=== PATIENT | male | born 1950 | race Caucasian/White ===

== ENCOUNTER 2016-11-13 12:16 | Emergency (ER) | payer OTHER ==
--- NOTE | 2016-11-13 12:27 | ED.PDOC ---
General ED Provider: Dr. SAMANTHA WALKER JR Chief Complaint: Finger Pain/Injury Stated Complaint: was traveling hoome from [facility] on Monday and was sleepiing in car. Awoke to find left thumb hurting, discolored. Appearance worsening on Monday and he "drained it" on Monday[End]2 days 97.8 69 16 92% 132/82 Presents to the ED with c/o left thumb pain/injury. Unknown cause[End]LEFT RADIAL SIDE OF THUMB WITH 5X10MM FLUCTUANT NONTENDER MASS SURROUNDING ECCHYMOSES IS ON XARELTO-STATES IS TRENDER HAS DRAINED IT TWICE BY STERILIZING A NEEDLE AND POKING A HOME Time Seen by Physician: 12:27 Mode of Arrival: Walk-In Information Source: Patient Exam Limitations: No limitations Primary Care Provider: JOVANA PARDO Nursing and Triage Documentation Reviewed and Agree: No Review of Systems - Review Of Systems Constitutional: Reports: No symptoms Eyes: Reports: No symptoms Ears, Nose, Mouth, Throat: Reports: No symptoms Respiratory: Reports: No symptoms Cardiac: Reports: No symptoms GI: Reports: No symptoms : Reports: No symptoms Musculoskeletal: Reports: No symptoms Skin: Reports: Lesions Neurological: Reports: No symptoms Endocrine: Reports: No symptoms Hematologic/Lymphatic: Reports: No symptoms All Other Systems: Other Past Medical History - Past Medical History Endocrine: Reports: DM 2, Hypothyroid, Dyslipidemia Cardiovascular: Reports: Hypertension, A-Fib Respiratory: Reports: None Hematological: Reports: None Gastrointestinal: Reports: None Genitourinary: Reports: Kidney stones Neuro/Psych: Reports: None Musculoskeletal: Reports: None Cancer: Reports: None - Surgical History General Surgical History: Reports: Orthopedic (right knee surgery repair 2002 ) - Family History Family History: Reports: Unknown - Social History Smoking Status: Never smoker Hx Substance Use: No Alcohol Screening: None - Immunizations Tetanus Shot up to Date: No Physical Exam - Physical Exam Appearance: Well-appearing, Obese Pain Distress: Mild Neck: Supple Respiratory: Airway patent Skin: Warm, Dry, Normal color Procedures - Incision and Drainage Site: left thumb Instrument Used: Needle (2cc bloody fluid removed thin overlying skin needs debridement), Other I & D Procedure: Yes: Hibiclens Prep Lidocaine Used: Yes Type of Drainage: Present: Blood, Seroma Irrigated: No (vesicle debrided along edge with scissors slight bleeding bandaged ) Critical Care Note - Critical Care Note Total Time (mins): 0 Course - Course Orders, Labs, Meds: Orders Category Date Time Status CULTURE WOUND [WOUND CULTURE] Stat LAB 11/13/16 12:55 Received Lidocaine HCl/Pf [Lidocaine 1 % Amp 5 ml (Sutures)] MEDS 11/13/16 12:53 Discontinued 5 ml SUBCUT ONCE STA Medications Discontinued Medications Generic Name Dose Route Start Last Admin Trade Name Ankush PRN Reason Stop Dose Admin Lidocaine HCl 5 ml 11/13/16 12:53 11/13/16 13:33 Lidocaine 1 % Amp 5 Ml (Sutures) SUBCUT 11/13/16 12:54 5 ml ONCE STA Administration Vital Signs: Temp Pulse Resp BP Pulse Ox 11/13/16 12:17 97.8 F 69 16 132/82 92 L Departure - Departure Time of Disposition: 13:50 Disposition: HOME SELF-CARE Discharge Problem: Hematoma and contusion Instructions: Contusion in Adults (ED) Condition: Good Pt referred to PMD for follow-up: Yes Additional Instructions: change bandage twice a day apply antibiotic ointment to keep moist return if red swollen increasing tenderness recheck PMD Please follow-up with Dr. Pardo in 1-5 days. Prescriptions: Bacitracin 1 applic TP 2-4XD #1 pkg Allergies/Adverse Reactions: Allergies No Known Allergies Allergy (Unverified 11/13/16 12:27) Home Medications: Ambulatory Orders Aspirin [Aspirin Chewable] 81 mg PO DAILY 10/30/13 Doxazosin Mesylate [Cardura] 8 mg PO BID 10/30/13 Furosemide [Lasix Tab] 40 mg PO DAILY 10/30/13 Latanoprost [Xalatan] 1 drop OP DAILY 10/30/13 Losartan Potassium [Cozaar] 100 mg PO DAILY 10/30/13 Metoprolol Tartrate [Lopressor] 100 mg PO BID 10/30/13 Potassium Chloride [K-Tab] 20 meq PO DAILY 10/30/13 Simvastatin [Zocor] 40 mg PO DAILY 10/30/13 Diltiazem HCl [Cardizem] 60 mg PO Q12HR #60 tablet 11/01/13 Clonidine HCl 0.2 mg PO BID #60 tablet 11/28/13 Metformin HCl 1,000 mg PO QPM #30 tablet 11/28/13 Mupirocin [Bactroban] 1 applic TP TID #1 applic 11/28/13 Propylthiouracil 50 mg PO Q8H #90 tablet 11/28/13 Bacitracin 1 applic TP 2-4XD #1 pkg 11/13/16 Rivaroxaban [Xarelto] 15 mg PO QPM 11/13/16
[2016-11-13 12:43] VITALS: BP 132/82; TEMP 97.8; BMI 40.9
[2016-11-13] MEDS ORDERED: LIDOCAINE 1 % AMP 5 ML (SUTURES) SUBCUT STA (12:53)
== END 2016-11-13 13:59 | disposition home or self-care (01) ==
LOC: ED 12:16
DX: S60.012A Contusion of left thumb without damage to nail, initial encounter (principal)
CPT/HCPCS: 87070; 87186; 96372; 99282

== ENCOUNTER 2017-05-25 09:05 | Outpatient (CLI) | END 2017-05-25 09:06 | disposition home or self-care (01) | LOC: LAB 09:05 | PROVIDERS: ATTEND Internal Medicine Endocrinology, Diabetes & Metabolism | DX: E05.90 Thyrotoxicosis, unspecified without thyrotoxic crisis or storm (principal) | CPT/HCPCS: 36415; 84439; 84443; 84480 ==

== ENCOUNTER 2023-08-19 09:30 | Inpatient (IN) ==
--- NOTE | 2023-08-19 10:00 | ED.PDOC ---
General ED Provider: Dr. AR NEAL DO Chief Complaint: Weakness Stated Complaint: 72-year-old male presents to the ER with his complaining of generalized weakness and nausea. This been going on for 4 days. They have not made any effort to contact her primary care physician. He denies fever over the last 48 to 72 hours. Denies headache, chest pain, shortness of breath or abdominal pain. Denies vomiting, diarrhea, constipation, melena or hematochezia. He does have a history of atrial fibrillation and reports compliance with his blood thinner. Also has a history of chronic kidney disease and diabetes. He is currently being treated for diabetic foot ulcers bilaterally. Denies fever or sick contacts. States that he has not had any desire to eat or drink. Time Seen by Provider: 08/19/23 09:33 Mode of Arrival: Walk-In Information Source: Patient Primary Care Provider: JOVANA PARDO MD Nursing and Triage Documentation Reviewed and Agree: Yes Does Patient Take Opioids?: No What is Opioid Naive?: *Opioid Naive implies the patient is not already taking opioids or not chronically receiving opioids on a daily basis. *PRN dosing is not "usually" associated with tolerance. *Patients are at higher risk of over-sedation and aspiration. Is Patient Opioid Tolerant?: No What is Opioid Tolerant?: *Opioid Tolerance implies less than the expected response to an opioid. *Acquired tolerance is defined by the patient taking 60mg of oral morphine daily (or equianalgesic dose of another opioid) for 1 week or more. *Often associated with chronic pain. *May take more than usual dose to achieve desired pain control. Review of Systems Review Of Systems Constitutional: Reports Malaise, Weakness and Loss of appetite; Denies Chills, Fever or Sweats Ears, Nose, Mouth, Throat: Reports No symptoms Respiratory: Reports No symptoms Cardiac: Reports No symptoms GI: Reports Nausea; Denies Vomiting : Reports No symptoms Musculoskeletal: Reports No symptoms Skin: Reports Other (Chronic diabetic foot ulcers) Neurological: Reports No symptoms Hematologic/Lymphatic: Reports No symptoms PFSH Family History FATHER CHF (congestive heart failure) Mother COPD (chronic obstructive pulmonary disease) Social History Smoking and tobacco status: Never smoker Second hand smoke exposure: Yes Alcohol intake: never Substance use type: does not use Special yury needs: No Agree to transfusion: Yes Adopted: No Caregiver/support person: No Foster care: No Household members: spouse Housing: house Marital status: M Lives independently: Yes Daycare: no daycare Number of children: 0 service: No shelter: No Current occupational status: retired History of recent travel: No Do you think of yourself as: straight/heterosexual Current gender identity: male Seatbelt use: always Drives intoxicated or rides with intoxicated solid waste truck driver: No Water heater temperature set < 120 degrees: Yes Working smoke detector in home: Yes Fire extinguisher in home: Yes Carbon monoxide detector in home: No Physical Exam Physical Exam Appearance: Reports Well-appearing, No pain distress and Well-nourished Eyes: Reports RYLEE, EOMI and Conjunctiva clear ENT: Reports Nose normal and Oropharynx normal Neck: Supple Respiratory: Reports Airway patent and Breath sounds clear Cardiovascular: Reports Irregular rhythm and Tachycardia GI/: Reports Soft and Nontender Musculoskeletal: Reports Normal strength, ROM intact and Other (Surgical boot on bilateral feet which are dressed and bandaged secondary to chronic diabetic foot ulcers) Skin: Reports Warm, Dry and Pale Neurological: Reports Sensation intact and Motor intact Psychiatric: Reports Affect appropriate and Mood appropriate Interpretation EKG Interpretation EKG Interpretation By: ED Physician Time of EKG #1: 09:56 Rate: Tachy Rhythm: Other (afib w/rvr) Ectopy: None [place]: Left ST Segment: Normal Interpretation: afib w/rvr, non ischemic ekg Course Course 08/19/23 13:35 08/19/23 13:35 Orders, Labs, Meds: Lab Review 08/19/23 08/19/23 08/19/23 09:45 09:50 10:17 WBC 16.09 H RBC 3.45 L Hgb 10.2 L Hct 34.1 L MCV 98.8 H MCH 29.6 MCHC 29.9 L RDW Coeff of Ebenezer 18.6 H Plt Count 166 Immature Gran % (Auto) Neut % (Auto) Lymph % (Auto) [place] % (Auto) Eos % (Auto) Baso % (Auto) Neut # (Auto) Lymph # (Auto) [place] # (Auto) Eos # (Auto) Baso # (Auto) Immature Gran # (Auto) Neutrophils % (Manual) 85.0 H Lymphocytes % (Manual) 10.0 Monocytes % (Manual) 4.0 Eosinophils % (Manual) 1.0 Anisocytosis Not present PT 11.4 H INR 1.10 APTT 25.6 Sodium 133.4 L Potassium 3.79 Chloride 107.5 H Carbon Dioxide 13.2 L Anion Gap 16.49 BUN 98.1 H* Creatinine 3.84 H* Estimated GFR (MDRD) 16.00 BUN/Creatinine Ratio 25.54 Glucose 229.5 H Lactic Acid Calcium 9.35 Total Bilirubin 0.50 AST 26.8 ALT 23.9 Alkaline Phosphatase 87.4 Total Protein 5.83 L Albumin 3.02 L Globulin 2.81 Albumin/Globulin Ratio 1.07 Procalcitonin SARS CoV-2 RNA Rapid LUKASZ Negative 08/19/23 08/19/23 10:30 13:35 WBC 15.18 H RBC 3.08 L Hgb 9.2 L Hct 30.0 L MCV 97.4 H MCH 29.9 MCHC 30.7 L RDW Coeff of [place]ene[place] 18.6 H Plt Count 137 L Immature Gran % (Auto) 0.6 Neut % (Auto) 91.9 H Lymph % (Auto) 3.4 L [place] % (Auto) 4.0 Eos % (Auto) 0.0 Baso % (Auto) 0.1 Neut # (Auto) 14.0 H Lymph # (Auto) 0.5 L [place] # (Auto) 0.6 Eos # (Auto) 0.0 Baso # (Auto) 0.0 Immature Gran # (Auto) 0.1 Neutrophils % (Manual) Lymphocytes % (Manual) Monocytes % (Manual) Eosinophils % (Manual) Anisocytosis PT INR APTT Sodium 135.7 Potassium 3.63 Chloride 109.3 H Carbon Dioxide 15.8 L Anion Gap 14.23 BUN 92.2 H* Creatinine 3.82 H* Estimated GFR (MDRD) 16.00 BUN/Creatinine Ratio 24.13 Glucose 212.4 H Lactic Acid 1.55 Calcium 8.87 Total Bilirubin AST ALT Alkaline Phosphatase Total Protein Albumin Globulin Albumin/Globulin Ratio Procalcitonin 0.11 H SARS CoV-2 RNA Rapid LUKASZ Orders Category Date Time Status EKG-(ED ONLY) Stat CARDIO 08/19/23 09:33 Completed ED MUFFLER MECHANIC APPLIED .ONCE EMERGENCY 08/19/23 10:27 Active ED VITAL SIGNS Q1HR EMERGENCY 08/19/23 10:27 Active BLOOD CULTURE (ED ONLY) Stat LAB 08/19/23 09:45 Received BMP [BASIC METABOLIC PANEL] Stat LAB 08/19/23 13:35 Completed CBC W/ AUTO DIFF Stat LAB 08/19/23 09:50 Completed CBC W/ AUTO DIFF Stat LAB 08/19/23 13:35 Completed CMP [COMPREHENSIVE METABOLIC PANEL] Stat LAB 08/19/23 09:50 Completed COVID [SARS COV-2 RNA RAPID LUKASZ] Stat LAB 08/19/23 10:17 Completed LACTIC ACID Stat LAB 08/19/23 10:30 Completed MANUAL DIFFERENTIAL Stat LAB 08/19/23 09:50 Completed PARTIAL THROMBOPLASTIN TIME Stat LAB 08/19/23 09:45 Completed PROCALCITONIN Stat LAB 08/19/23 10:30 Completed PT WITH INR Stat LAB 08/19/23 09:45 Completed URINALYSIS C & S IF INDICATED Stat LAB 08/19/23 09:33 Uncollected Diltiazem HCl [Cardizem Inj] Meds 08/19/23 09:55 Discontinued 15 mg IVP ONCE STA Piperacillin Sodium/Tazobactam [Zosyn 3.375 gm] 3.375 Meds 08/19/23 10:27 Discontinued gm 0.9 % Sodium Chloride [Sodium Chloride] 50 ml IV ONCE SODIUM BICARB 100 MEQ in 0.9% SODIUM CHLORIDE 1000ML @ Meds 08/19/23 15:34 Ordered 200 MLS/HR Sodium Chloride 0.9% [Sodium Chloride] 1,000 ml Sodium Bicarb 8.4% Vial [Sodium Bicarbonate 8.4%] 100 meq IV 200 mls/hr Sodium Chloride 0.9% [Sodium Chloride] 1,000 ml Meds 08/19/23 15:08 Active IV 125 mls/hr Sodium Chloride 0.9% [Sodium Chloride] 1,000 ml Meds 08/19/23 09:55 Discontinued IV BOLUS Sodium Chloride 0.9% [Sodium Chloride] 1,000 ml Meds 08/19/23 11:07 Discontinued IV BOLUS CHEST, 1V AP ONLY Stat RADS 08/19/23 09:33 Completed Medications Generic Name Dose Route Start Last Admin Trade Name Freq PRN Reason Stop Dose Admin Sodium Chloride 1,000 mls @ 125 mls/hr 08/19/23 15:08 08/19/23 15:21 Sodium Chloride IV 08/19/23 23:07 125 mls/hr .Q8H ONE Administration Discontinued Medications Generic Name Dose Route Start Last Admin Trade Name Ankush PRN Reason Stop Dose Admin Diltiazem HCl 15 mg 08/19/23 09:55 08/19/23 10:36 Diltiazem Hcl Inj 25 Mg/5 Ml Vial IVP 08/19/23 09:56 15 mg ONCE STA Administration Sodium Chloride 1,000 mls @ 1,000 mls/hr 08/19/23 09:55 08/19/23 11:38 Sodium Chloride IV 08/19/23 10:54 Infused BOLUS ONE Infusion Piperacillin Sod/Tazobactam 50 mls @ 50 mls/hr 08/19/23 10:27 08/19/23 10:38 Sod 3.375 gm/ Sodium Chloride IV 08/19/23 11:26 50 mls/hr ONCE STA Administration Sodium Chloride 1,000 mls @ 1,000 mls/hr 08/19/23 11:07 08/19/23 13:20 Sodium Chloride IV 08/19/23 12:06 Infused BOLUS ONE Infusion Vital Signs: Temp Pulse Resp BP Pulse Ox 08/19/23 10:51 103 H 20 98 08/19/23 09:36 98.4 F 68 20 173/115 H 100 Discharge Plan Discharge Patient Disposition: ADMITTED INPATIENT Discharge Problem: Acute kidney injury superimposed on chronic kidney disease, Metabolic acidosis, Acute dehydration Atrial fibrillation Qualifiers: Atrial fibrillation type: permanent Qualified Code(s): I48.21 - Permanent atrial fibrillation Diabetes Qualifiers: Diabetes mellitus type: type 2 Diabetes mellitus terminal gauger insulin use: without nursing home use Diabetes mellitus complication status: with kidney complications D iabetes mellitus complication detail: with chronic kidney disease Chronic kidney disease stage: unspecified stage Qualified Code(s): E11.22 - Type 2 diabetes mellitus with diabetic chronic kidney disease Diabetic foot ulcer Qualifiers: Diabetic foot ulcer location: heel Diabetes mellitus type: type 2 Laterality: u nspecified laterality Non-pressure ulcer stage: unspecified non-pressure ulcer stage Qualified Code(s): E11.621 - Type 2 diabetes mellitus with foot ulcer; L97.409 - Non-pressure chronic ulcer of unspecified heel and midfoot with unspecified severity Prescriptions: No Action Xarelto 15 mg tablet 15 mg PO QDAY Qty: 90 1RF Rx Instructions: must administer with evening meal metoprolol tartrate 100 mg tablet 100 mg PO BID Qty: 180 1RF diltiazem HCl 60 mg tablet 60 mg PO Q12HR Qty: 180 1RF clonidine HCl 0.2 mg tablet See Rx Instructions .ROUTE .COMPLEX Qty: 180 0RF Dose Instruction: TAKE 1 TABLET BY MOUTH TWICE DAILY Rx Instructions: TAKE 1 TABLET BY MOUTH TWICE DAILY terazosin 5 mg capsule See Rx Instructions .ROUTE .COMPLEX Qty: 180 0RF Dose Instruction: TAKE 1 CAPSULE BY MOUTH TWICE DAILY Rx Instructions: TAKE 1 CAPSULE BY MOUTH TWICE DAILY latanoprost 1 DROP drops 1 drp BOTHEYES DAILY atorvastatin [Lipitor] 40 mg tablet 20 mg PO DAILY insulin degludec [Tresiba FlexTouch U-100] 100 unit/mL (3 mL) insulin pen 12 unit subcut QDAY insulin lispro 100 unit/mL insulin pen 6 unit subcut BID furosemide [Lasix] 20 mg tablet 20 mg PO 5XW Qty: 90 1RF Rx Instructions: DO NOT TAKE MONDAY OR MONDAY zinc gluconate 100 mg tablet 100 mg PO DAILY magnesium 250 mg tablet 250 mg PO QDAY ferrous fumarate 325 mg (106 mg iron) tablet 325 mg PO QDAY calcitriol 0.5 mcg capsule 0.5 mcg PO QDAY sodium bicarbonate 650 mg tablet 650 mg PO TID allopurinol 100 mg tablet 200 mg PO QDAY Victoza 3-Antonio 0.6 mg/0.1 mL (18 mg/3 mL) pen injector 1.8 mg subcut QDAY glucosamine-chondroitin [Osteo Bi-Flex] 250-200 mg tablet 2 tab PO QPC omega 4-[id number]-yoa-fish oil [Fish Oil] 60-90-500 mg capsule 3 cap PO QDAY ascorbic acid (vitamin C) 1,000 mg tablet 1 g PO Q6H ergocalciferol (vitamin D2) [Vitamin D2] 1,250 mcg (50,000 unit) capsule 1,250 mcg PO QMONTH Did you review [place] [employer] SURVEYOR for ALL controlled substances?: Not Applicable ED Provider: AR NEAL Condition: Stable Physician Progress Note: [] 72-year-old male with multiple comorbidities presents to the ER reporting generalized weakness and nausea. He is mildly pale and color. He is tachycardic. History of atrial fibrillation. Rate not consistent with rapid ventricular response but is not excluded. Denies melena or hematochezia, however anemia not excluded given the pallor. He is otherwise afebrile nontoxic doubt systemic infection such as sepsis. Doubt acute cardiopulmonary processes to include but not limited to ACS, TN, PE, pneumothorax, dissection or tamponade. Abdomen soft nontender throughout, doubt acute intra-abdominal process. Given multiple comorbidities however metabolic/electrolyte/diabetic etiology not excluded. Chronic kidney disease also remains on the differential. Will obtain laboratory workup and begin IV fluid management. Will give a dose of diltiazem given the history of atrial fibrillation and patient reports compliance with his medications. Will review his workup for disposition planning. 1029: Although patient is afebrile, he has a white count of 16 and tachycardia call following for SIRS. Sepsis definitely possible given his presence of diabetic foot ulcers. I have expanded his workup to include the necessary labs for the sepsis workup and initiated antibiotics. I have not given the 30 cc/kg bolus due to the patient's history of chronic kidney disease and I do not want to risk fluid overload. He is otherwise hemodynamically stable and is not hypotensive 1128: Patient is asked for something to drink. Tolerating p.o. Labs consistent with acute kidney injury/dehydration. Negative lactic acid. Consider leukocytosis secondary to contracture as opposed to true sepsis or SIRS. Will give fluid bolus and recheck status of renal function and white count for final disposition 1534: Patient has not produced any urine after 2 L of IV fluids. Has been here for 5 hours. I believe this patient is very volume depleted. I also feels that his chronic kidney disease is worsening. I discussed with the hospitalist and Dr. Pardo who are okay with bringing the patient into the hospital here. I will give a single dose of IV sodium bicarb given his acidosis on his metabolic profile to try and aid in his renal function and metabolic profile and overall treatment. Will continue IV fluids otherwise. The patient will be admitted to the hospital service.
[2023-08-19 10:10] LABS: HEMATOCRIT 34.1 % (42.0-52.0); HEMOGLOBIN 10.2 g/dl (14.0-18.0); MEAN CORPUSCULAR HEMOGLOBIN 29.6 pg (27.0-31.0); MEAN CORPUSCULAR HGB CONC 29.9 (31.8-35.4); MEAN CORPUSCULAR VOLUME 98.8 fl (80.0-94.0); PLATELET COUNT 166 10^3/uL (140-440); RDW COEFFICIENT OF VARIATION 18.6 % (11.6-14.8); RED BLOOD COUNT 3.45 10^6/ul (4.70-6.10); WHITE BLOOD COUNT 16.09 K/ul (4.2-10.2)
[2023-08-19 10:25] LABS: ALANINE AMINOTRANSFERASE 23.9 U/L (0-50); ALBUMIN 3.02 g/dL (3.5-5.0); ALKALINE PHOSPHATASE 87.4 U/L (56-119); ANISOCYTOSIS NOT PRESENT (NOT PRESENT); ASPARTATE AMINO TRANSFERASE 26.8 U/L (17-59); BILIRUBIN,TOTAL 0.5 mg/dL (0.2-1.3); CALCIUM 9.35 mg/dL (8.4-10.2); CARBON DIOXIDE 13.2 mmol/L (22-30.0); CHLORIDE 107.5 mmol/L (98-107); GLUCOSE 229.5 mg/dL (74-106); POTASSIUM 3.79 mmol/L (3.5-5.1); SODIUM 133.4 mmol/L (134.5-145); TOTAL PROTEIN 5.83 g/dL (6.3-8.2)
[2023-08-19 10:34] LABS: BLOOD UREA NITROGEN 98.1 mg/dL (9-20)
[2023-08-19 10:35] LABS: CREATININE 3.84 mg/dL (0.60-1.10)
[2023-08-19] MEDS: SODIUM CHLORIDE 1,000 ML IV ONE ×3 (10:36→15:21)
[2023-08-19] MEDS: CARDIZEM INJ IVP STA (10:36)
[2023-08-19] MEDS: ZOSYN 3.375 GM 3.375 GM in SODIUM CHLORIDE 50 ML IV STA (10:38)
[2023-08-19 11:01] LABS: PARTIAL THROMBOPLASTIN TIME 25.6 SEC (23.9-40.0); PROTHROMBIN TIME 11.4 SEC (9.3-11.0)
[2023-08-19 11:11] LABS: SARS COV-2 RNA RAPID NAAT NEGATIVE (NEGATIVE)
--- NOTE | 2023-08-19 11:23 | DI ---
EXAM: SINGLE VIEW CHEST. HISTORY: Weakness COMPARISON: 02/08/2017 FINDINGS: The car mediastinal silhouette appears enlarged. Mild calcified plaques overlie the aorta. Pulmonary vascularity is within normal limits. No focal airspace opacity or pleural effusion is se en. Punctate left lower lung zone calcified granuloma is suggested. The bones are diffusely deminer alized. IMPRESSION: No acute cardiopulmonary findings. Mild cardiomegaly versus magnified heart size by technique.
[2023-08-19 13:41] LABS: BASOPHILS % (AUTO) 0.1 % (0.0-3.0); HEMOGLOBIN 9.2 g/dl (14.0-18.0); IMMATURE GRANULOCYTE # (AUTO) 0.1 (0.0-1.0); IMMATURE GRANULOCYTE % (AUTO) 0.6 % (0.0-5.0); LYMPHOCYTES # (AUTO) 0.5 K/uL (0.60-3.4); LYMPHOCYTES % (AUTO) 3.4 (10.0-50.0); MEAN CORPUSCULAR HEMOGLOBIN 29.9 pg (27.0-31.0); MEAN CORPUSCULAR HGB CONC 30.7 (31.8-35.4); MEAN CORPUSCULAR VOLUME 97.4 fl (80.0-94.0); MONOCYTES # (AUTO) 0.6 K/uL (0.4-2.0); NEUTROPHILS % (AUTO) 91.9 % (42.2-75.2); PLATELET COUNT 137 10^3/uL (140-440); RDW COEFFICIENT OF VARIATION 18.6 % (11.6-14.8); RED BLOOD COUNT 3.08 10^6/ul (4.70-6.10); WHITE BLOOD COUNT 15.18 K/ul (4.2-10.2)
[2023-08-19 13:54] LABS: CALCIUM 8.87 mg/dL (8.4-10.2); CARBON DIOXIDE 15.8 mmol/L (22-30.0); CHLORIDE 109.3 mmol/L (98-107); GLUCOSE 212.4 mg/dL (74-106); SODIUM 135.7 mmol/L (134.5-145)
[2023-08-19 14:06] LABS: BLOOD UREA NITROGEN 92.2 mg/dL (9-20); POTASSIUM 3.63 mmol/L (3.5-5.1)
[2023-08-19 14:07] LABS: CREATININE 3.82 mg/dL (0.60-1.10)
[2023-08-19] MEDS ORDERED: TYLENOL PO PRN (15:36)
[2023-08-19] MEDS ORDERED: SODIUM CHLORIDE 1,000 ML IV SCH (16:00)
[2023-08-19] MEDS: SODIUM CHLORIDE IV ONE (16:11)
[2023-08-19] MEDS: SODIUM BICARBONATE IV ONE (16:11)
[2023-08-19] MEDS: SODIUM BICARBONATE 8.4% ONE ×2 (17:22→17:38)
[2023-08-19] MEDS: SODIUM BICARBONATE IV SCH (17:37)
[2023-08-19] MEDS: LACTATED RINGERS IV SCH (17:37)
[2023-08-19 18:08] VITALS: BMI 29.0
[2023-08-19 18:09] LABS: BILIRUBIN,URINE Negative (NEGATIVE); CLARITY,URINE Clear (CLEAR); COLOR,URINE Yellow (YELLOW); GLUCOSE, URINE (UA) Trace (NEGATIVE); KETONES,URINE Negative (NEGATIVE); LEUKOCYTE ESTERASE ,URINE Negative (NEGATIVE); NITRITE,URINE Negative (NEGATIVE); PROTEIN,URINE 2+ (NEGATIVE); URINE, BLOOD Trace-intact (NEGATIVE); UROBILINOGEN,URINE 0.2 (0.2)
[2023-08-19] MEDS ORDERED: NON-FORMULARY MEDICATION (Insulin Degludec [Tresiba Flextouch U-100] 100 unit/mL (3 mL) in SUBCUT SCH (18:30)
[2023-08-19] MEDS: LOPRESSOR PO ONE (19:29)
[2023-08-19] MEDS: CATAPRES PO SCH (21:08)
[2023-08-19] MEDS: HYTRIN PO SCH (21:08)
[2023-08-19] MEDS: SODIUM BICARBONATE PO SCH (21:08)
[2023-08-19] MEDS: CARDIZEM PO SCH (21:08)
[2023-08-19] MEDS: XARELTO PO SCH (21:09)
[2023-08-20] MEDS: SODIUM BICARBONATE 8.4% ONE ×2 (02:55→14:07)
[2023-08-20 05:14] LABS: BASOPHILS % (AUTO) 0.1 % (0.0-3.0); EOSINOPHILS % (AUTO) 0.3 % (0.0-7.0); HEMATOCRIT 24.9 % (42.0-52.0); HEMOGLOBIN 7.7 g/dl (14.0-18.0); IMMATURE GRANULOCYTE # (AUTO) 0.1 (0.0-1.0); IMMATURE GRANULOCYTE % (AUTO) 0.5 % (0.0-5.0); LYMPHOCYTES # (AUTO) 0.7 K/uL (0.60-3.4); LYMPHOCYTES % (AUTO) 5.7 (10.0-50.0); MEAN CORPUSCULAR HEMOGLOBIN 29.7 pg (27.0-31.0); MEAN CORPUSCULAR HGB CONC 30.9 (31.8-35.4); MEAN CORPUSCULAR VOLUME 96.1 fl (80.0-94.0); MONOCYTES # (AUTO) 0.7 K/uL (0.4-2.0); MONOCYTES % (AUTO) 5.7 (0-10); NEUTROPHILS # (AUTO) 10.7 K/ul (2.0-6.9); NEUTROPHILS % (AUTO) 87.7 % (42.2-75.2); PLATELET COUNT 111 10^3/uL (140-440); RDW COEFFICIENT OF VARIATION 18.6 % (11.6-14.8); RED BLOOD COUNT 2.59 10^6/ul (4.70-6.10); WHITE BLOOD COUNT 12.18 K/ul (4.2-10.2)
[2023-08-20 05:25] LABS: ALANINE AMINOTRANSFERASE 19.2 U/L (0-50); ALBUMIN 2.11 g/dL (3.5-5.0); ALKALINE PHOSPHATASE 64.1 U/L (56-119); ASPARTATE AMINO TRANSFERASE 24.8 U/L (17-59); BILIRUBIN,TOTAL 0.35 mg/dL (0.2-1.3); CALCIUM 8.48 mg/dL (8.4-10.2); CARBON DIOXIDE 16.9 mmol/L (22-30.0); CHLORIDE 112.1 mmol/L (98-107); GLUCOSE 132.3 mg/dL (74-106); POTASSIUM 3.52 mmol/L (3.5-5.1); SODIUM 134.8 mmol/L (134.5-145); TOTAL PROTEIN 4.5 g/dL (6.3-8.2)
[2023-08-20 05:35] LABS: BLOOD UREA NITROGEN 87.7 mg/dL (9-20); CREATININE 3.52 mg/dL (0.60-1.10)
[2023-08-20 08:09] LABS: IRON 31.6 ug/dL (49-181)
[2023-08-20] MEDS: XALATAN EACHEYE SCH (08:38)
[2023-08-20] MEDS: LIPITOR PO SCH (08:38)
[2023-08-20] MEDS: OMEGA-3 FISH OIL PO SCH (08:39)
[2023-08-20] MEDS: FERROUS SULFATE PO SCH ×2 (08:39→20:30)
[2023-08-20] MEDS: LOPRESSOR PO SCH (08:39)
[2023-08-20] MEDS: ZYLOPRIM PO SCH (08:39)
[2023-08-20] MEDS: LANTUS SUBCUT SCH (08:40)
--- NOTE | 2023-08-20 09:23 | PCM ---
Date of Service Date Seen by Provider: 08/20/23 Time Seen by Provider: 09:00 Admit Day/Time Admission Date: 08/19/23 Reason for Admission Chief Complaint: ACUTE CHRONIC RENAL FAILURE Hospital Provider Hospital Provider: VIKAS GRAVES, [facility] [place] Primary Care Physician Primary Care Physician: JOVANA RUST MD History of Present Illness History of Present Illness: 72 yo male presented to the ER yesterday with complaints of weakness. Reports he has not been eating or drinking well over the last 5 days or so. Has been taking his medications as prescribed except did not take his meds prior to coming to the ER. Denies any sick contacts. Denies any known fever, chills, body aches, N/V/D. Has chronic wounds to bilateral legs/feet and follows with wound care twice a week. Dressings were removed and patient has 1 area to the left foot laterally that was cultured due to drainage present. Case Discussed With Case Discussed With: Patient's case was discussed with the ER Physicians, Dr. Garibay [facility] Family History FATHER CHF (congestive heart failure) Mother COPD (chronic obstructive pulmonary disease) Social History Smoking and tobacco status: Never smoker Second hand smoke exposure: Yes Alcohol intake: never Substance use type: does not use Special yury needs: No Agree to transfusion: Yes Adopted: No Caregiver/support person: No Foster care: No Household members: spouse Housing: house Marital status: M Lives independently: Yes Daycare: no daycare Number of children: 0 service: No detention: No Current occupational status: retired History of recent travel: No Do you think of yourself as: straight/heterosexual Current gender identity: male Seatbelt use: always Drives intoxicated or rides with intoxicated class a truck driver: No Water heater temperature set < 120 degrees: Yes Working smoke detector in home: Yes Fire extinguisher in home: Yes Carbon monoxide detector in home: No Allergies Allergies Allergy/AdvReac Type Severity Reaction Status Date / Time No Known Allergies Allergy Verified 05/30/23 08:30 Current Medications Home Medications latanoprost 0.005 % eye drops 1 drp BOTHEYES DAILY 10/30/13 [History Confirmed 08/19/23 Last Taken 08/18/23 08:00 1 drp] allopurinol 100 mg tablet 200 mg PO QDAY 11/18/22 [History Confirmed 08/19/23 Last Taken 08/18/23 08:00 200 mg] ascorbic acid (vitamin C) 1,000 mg tablet 1 g PO DAILY 11/18/22 [History Confirmed 08/19/23 Last Taken 08/18/23 08:00 1 g] calcitriol 0.5 mcg capsule 0.5 mcg PO QDAY 11/18/22 [History Confirmed 08/19/23 Last Taken 08/18/23 08:00 0.5 mcg] ergocalciferol (vitamin D2) 1,250 mcg (50,000 unit) capsule (Vitamin D2) 1,250 mcg PO QMONTH 11/18/22 [History Confirmed 08/19/23 Last Taken 07/14/23 08:00 1,250 mcg] ferrous fumarate 325 mg (106 mg iron) tablet 325 mg PO QDAY 11/18/22 [History Confirmed 08/19/23 Last Taken 08/18/23 08:00 325 mg] glucosamine-chondroitin 250 mg-200 mg tablet (Osteo Bi-Flex) 2 tab PO QPC 11/18/22 [History Confirmed 08/19/23 Last Taken 08/18/23 08:00 2 tabs] liraglutide 0.6 mg/0.1 mL (18 mg/3 mL) subcutaneous pen injector (Victoza 3-Antonio) 1.8 mg subcut QDAY 11/18/22 [History Confirmed 08/19/23 Last Taken 08/18/23 08:00 1.8 mg] omega 8-ouh-iwg-fish oil 60 mg-90 mg-500 mg capsule (Fish Oil) 3 cap PO QDAY 11/18/22 [History Confirmed 08/19/23 Last Taken 08/18/23 08:00 3 caps] sodium bicarbonate 650 mg tablet 650 mg PO TID 11/18/22 [History Confirmed 08/19/23 Last Taken 08/18/23 17:00 650 mg] rivaroxaban 15 mg tablet (Xarelto) 15 mg PO QDAY #90 tabs 11/29/22 [Rx Confirmed 08/19/23 Last Taken 08/18/23 08:00 15 mg] diltiazem HCl 60 mg tablet 60 mg PO Q12HR #180 tabs 02/21/23 [Rx Confirmed 08/19/23 Last Taken 08/18/23 17:00 60 mg] insulin degludec 100 unit/mL (3 mL) subcutaneous pen (Tresiba FlexTouch U-100 insulin) 10 unit subcut QDAY 03/15/23 [History Confirmed 08/19/23 Last Taken 08/18/23 08:00 10 units] insulin lispro 100 unit/mL subcutaneous pen 4 unit subcut BID 03/15/23 [History Confirmed 08/19/23 Last Taken 08/18/23 17:00 4 units] clonidine HCl 0.2 mg tablet See Rx Instructions .Route .COMPLEX #180 tabs 05/22/23 [Rx Confirmed 08/19/23 Last Taken 08/18/23 17:00 0.2 mg] magnesium 250 mg tablet 500 mg PO QDAY 06/28/23 [History Confirmed 08/19/23 Last Taken 08/18/23 08:00 500 mg] zinc gluconate 100 mg tablet 100 mg PO DAILY 06/28/23 [History Confirmed 08/19/23 Last Taken 08/18/23 08:00 100 mg] terazosin 5 mg capsule See Rx Instructions .Route .COMPLEX #180 caps 08/14/23 [Rx Confirmed 08/19/23 Last Taken 08/18/23 17:00 5 mg] atorvastatin 40 mg tablet (Lipitor) 20 mg PO DAILY 08/19/23 [History Confirmed 08/19/23 Last Taken 08/18/23 08:00 20 mg] cyanocobalamin (B12)-cobamamide 5,000 mcg-100 mcg sublingual lozenge (B12) 1 rosa isela sublingual DAILY 08/19/23 [History Confirmed 08/19/23 Last Taken 08/18/23 08:00 1 rosa isela] furosemide 20 mg tablet (Lasix) 20 mg PO DAILY 08/19/23 [History Confirmed 08/19/23 Last Taken 08/18/23 08:00 20 mg] metoprolol tartrate 100 mg tablet 100 mg PO BID 08/19/23 [History Confirmed 08/20/23 Last Taken 08/18/23 08:00 100 mg] Home Acetaminophen (Acetaminophen 325 Mg Tablet) 650 mg PO Q4H PRN PRN Reason: Mild Pain Allopurinol (Allopurinol 100 Mg Tablet) 200 mg PO DAILY COUNT INCLUDES THE [facility] Last Admin: 08/20/23 08:39 Dose: 200 mg Atorvastatin Calcium (Atorvastatin Calcium 20 Mg Tablet) 20 mg PO DAILY COUNT INCLUDES THE [facility] Last Admin: 08/20/23 08:38 Dose: 20 mg Calcium Carbonate/Glycine (Calcium Carbonate 500 Mg Tab.Chew) 500 mg PO Q6H PRN PRN Reason: Heartburn Clonidine (Clonidine Hcl 0.1 Mg Tablet) 0.2 mg PO BID COUNT INCLUDES THE [facility] Last Admin: 08/20/23 08:39 Dose: 0.2 mg Diltiazem HCl (Diltiazem Hcl 60 Mg Tablet) 60 mg PO Q12HR COUNT INCLUDES THE [facility] Last Admin: 08/20/23 08:38 Dose: 60 mg Ferrous Sulfate (Ferrous Sulfate 324 Mg Tablet.Dr) 324 mg PO BID COUNT INCLUDES THE [facility] Fish Oil ([place]-3/Dha/Epa/Fish Oil 1,000 Mg Capsule) 3,000 mg PO DAILY COUNT INCLUDES THE [facility] Last Admin: 08/20/23 08:39 Dose: 3,000 mg Sodium Bicarbonate 50 meq/ (Lactated Ringer's) 1,050 mls @ 100 mls/hr IV .[id number] COUNT INCLUDES THE [facility] Last Admin: 08/20/23 02:49 Dose: 100 mls/hr Insulin Glargine (Insulin Glargine,Hum.Rec.Anlog 100 Units/Ml) 10 unit SUBCUT DAILY COUNT INCLUDES THE [facility] Last Admin: 08/20/23 08:40 Dose: 10 unit Insulin Human Regular (Insulin Regular, Human 100 Unit/Ml (10ml) Vial) 0 unit SUBCUT PRN PRN; Protocol PRN Reason: Hyperglycemia Latanoprost (Latanoprost 2.5 Ml Opth Emma) 1 drop EACHEYE BEDTIME COUNT INCLUDES THE [facility] Metoprolol Tartrate (Metoprolol Tartrate 50 Mg Tablet) 100 mg PO BID COUNT INCLUDES THE [facility] Last Admin: 08/20/23 08:39 Dose: 100 mg Xarelto 15mg Tab 1 each PO QPM COUNT INCLUDES THE [facility] Sodium Bicarbonate (Sodium Bicarbonate 650 Mg Tablet) 650 mg PO TID COUNT INCLUDES THE [facility] Last Admin: 08/20/23 08:39 Dose: 650 mg Terazosin HCl (Terazosin Hcl 5 Mg Capsule) 5 mg PO BID COUNT INCLUDES THE [facility] Last Admin: 08/20/23 08:39 Dose: 5 mg Discontinued Medications Diltiazem HCl (Diltiazem Hcl Inj 25 Mg/5 Ml Vial) 15 mg IVP ONCE STA Stop: 08/19/23 09:56 Last Admin: 08/19/23 10:36 Dose: 15 mg Ferrous Sulfate (Ferrous Sulfate 324 Mg Tablet.Dr) 324 mg PO DAILY COUNT INCLUDES THE [facility] Last Admin: 08/20/23 08:39 Dose: 324 mg Sodium Chloride (Sodium Chloride) 1,000 mls @ 1,000 mls/hr IV BOLUS ONE Stop: 08/19/23 10:54 Last Infusion: 08/19/23 11:38 Dose: Infused Piperacillin Sod/Tazobactam (Sod 3.375 gm/ Sodium Chloride) 50 mls @ 50 mls/hr IV ONCE STA Stop: 08/19/23 11:26 Last Admin: 08/19/23 10:38 Dose: 50 mls/hr Sodium Chloride (Sodium Chloride) 1,000 mls @ 1,000 mls/hr IV BOLUS ONE Stop: 08/19/23 12:06 Last Infusion: 08/19/23 13:20 Dose: Infused Sodium Chloride (Sodium Chloride) 1,000 mls @ 125 mls/hr IV .Q8H ONE Stop: 08/19/23 23:07 Last Infusion: 08/19/23 17:23 Dose: Infused Sodium Bicarbonate 100 meq/ (Sodium Chloride) 1,100 mls @ 200 mls/hr IV .Q5H30M ONE Stop: 08/19/23 21:03 Last Infusion: 08/19/23 17:38 Dose: Infused Sodium Chloride (Sodium Chloride) 1,000 mls @ 75 mls/hr IV .[id number] COUNT INCLUDES THE [facility] Latanoprost (Latanoprost 2.5 Ml Opth Emma) 1 drop EACHEYE DAILY COUNT INCLUDES THE [facility] Last Admin: 08/20/23 08:38 Dose: 1 drop Metoprolol Tartrate (Metoprolol Tartrate 50 Mg Tablet) 50 mg PO ONCE ONE Stop: 08/19/23 19:31 Last Admin: 08/19/23 19:29 Dose: 50 mg Non-Formulary Medication (Insulin Degludec [Tresiba Flextouch U-100]) 10 unit SUBCUT QDAY COUNT INCLUDES THE [facility] Rivaroxaban (Rivaroxaban 10 Mg Tablet) 15 mg PO QPM COUNT INCLUDES THE [facility] Rivaroxaban (Rivaroxaban 10 Mg Tablet) 15 mg PO QPM COUNT INCLUDES THE [facility] Last Admin: 08/19/23 21:09 Dose: Not Given Opioid Naive vs. Tolerant Does Patient Take Opioids?: No Is Patient Opioid Naive?: No What is Opioid Naive?: *Opioid Naive implies the patient is not already taking opioids or not chronically receiving opioids on a daily basis. *PRN dosing is not "usually" associated with tolerance. *Patients are at higher risk of over-sedation and aspiration. Is Patient Opioid Tolerant?: No What is Opioid Tolerant?: *Opioid Tolerance implies less than the expected response to an opioid. *Acquired tolerance is defined by the patient taking 60mg of oral morphine daily (or equianalgesic dose of another opioid) for 1 week or more. *Often associated with chronic pain. *May take more than usual dose to achieve desired pain control. Review of Systems Constitutional: Reports Weakness and Loss of appetite Head: Reports Normocephalic Eyes: Reports No symptoms Ears: Reports No symptoms Nose: Reports No symptoms Mouth: Reports No symptoms Throat: Reports No symptoms Cardiovascular: Reports No symptoms Respiratory: Reports No symptoms Gastrointestinal: Reports No symptoms Genitourinary: Reports No Symptoms Musculoskeletal: Reports No symptoms Endocrine: Reports No symptoms Hematology: Reports No symptoms Immunology: Reports No symptoms Neurological: Reports No symptoms Psychiatric: Reports No symptoms Physical examination Most Recent Vital Signs: Most Recent Vital Signs Temperature 97.3 F L 08/20/23 05:31 Temperature Source Oral 08/20/23 05:31 Temperature Source Oral 08/19/23 09:36 Pulse Rate 74 08/20/23 05:31 Respiratory Rate 18 08/20/23 08:00 Blood Pressure 138/81 08/20/23 05:31 Blood Pressure Mean 100 08/20/23 05:31 Blood Pressure Left Arm 177/96 08/19/23 16:04 Blood Pressure Location Right Arm 08/20/23 05:31 Blood Pressure Position Supine 08/20/23 05:31 O2 Sat by Pulse Oximetry 98 08/20/23 05:31 Oxygen Delivery Method Room Air 08/20/23 09:00 Height 6 ft 08/19/23 16:04 Weight 214 lb 08/19/23 16:04 Telemetry Type Remote Telemetry 08/20/23 07:00 Telemetry Monitoring Continues 08/20/23 07:00 Irregular Telemetry Rate (Approximate) 70-80 BPM 08/20/23 07:00 Telemetry Heart Rate 115 H 08/19/23 18:14 Telemetry SPO2 92 L 11/26/13 01:00 EKG QRS Interval 0.11 H 08/20/23 07:00 Telemetry Strip Reading Afib with PVC and BBB 08/20/23 07:00 Appearance: Positive No Apparent Distress, Alert and Oriented x3 and Obese Skin: Positive Warm, Good Turgor and Other (dresings to bilateral legs and feet. Exam from photos: Necrotic toes present to both feet. No significant erythema/drainage. 1 area swabbed for culture to the left lateral foot) HEENT: Positive Normocephalic and PERRLA Neck: Positive Supple and Midline Trachea Chest/Lungs: Positive Symmetrical With Equal Breath Sounds, Clear to Auscultation Bilaterally and Good Air Movement all 4 Lung Sorto Heart: Positive RRR and Pulses Normal GI/: Positive Soft, Nontender, Bowel Sounds Normal and No Distention Musculoskeletal: Positive Not Examined Extremities: Positive Intact Peripheral Pulses, Stable Joints Without Laxity and Good ROM in All Joints Neurological: Positive Sensation Intact, Motor intact, Reflexes Intact, Alert and Oriented Labs This Visit Labs This Visit: Labs This Visit 08/19/23 08/19/23 08/19/23 09:45 09:50 10:17 WBC 16.09 H RBC 3.45 L Hgb 10.2 L Hct 34.1 L MCV 98.8 H MCH 29.6 MCHC 29.9 L RDW Coeff of Ebenezer 18.6 H Plt Count 166 Immature Gran % (Auto) Neut % (Auto) Lymph % (Auto) [place] % (Auto) Eos % (Auto) Baso % (Auto) Neut # (Auto) Lymph # (Auto) [place] # (Auto) Eos # (Auto) Baso # (Auto) Immature Gran # (Auto) Neutrophils % (Manual) 85.0 H Lymphocytes % (Manual) 10.0 Monocytes % (Manual) 4.0 Eosinophils % (Manual) 1.0 Anisocytosis Not present PT 11.4 H INR 1.10 APTT 25.6 Sodium 133.4 L Potassium 3.79 Chloride 107.5 H Carbon Dioxide 13.2 L Anion Gap 16.49 BUN 98.1 H* Creatinine 3.84 H* Estimated GFR (MDRD) 16.00 BUN/Creatinine Ratio 25.54 Glucose 229.5 H Lactic Acid Calcium 9.35 Iron TIBC % Saturation Ferritin Total Bilirubin 0.50 AST 26.8 ALT 23.9 Alkaline Phosphatase 87.4 Total Protein 5.83 L Albumin 3.02 L Globulin 2.81 Albumin/Globulin Ratio 1.07 Procalcitonin Urine Color Urine Clarity Urine pH Ur Specific [place] Urine Protein Urine Glucose (UA) Urine Ketones Urine Blood Urine Nitrite Urine Bilirubin Urine Urobilinogen Ur Leukocyte Esterase SARS CoV-2 RNA Rapid LUKASZ Negative 08/19/23 08/19/23 08/19/23 10:30 13:35 18:00 WBC 15.18 H RBC 3.08 L Hgb 9.2 L Hct 30.0 L MCV 97.4 H MCH 29.9 MCHC 30.7 L RDW Coeff of [place] 18.6 H Plt Count 137 L Immature Gran % (Auto) 0.6 Neut % (Auto) 91.9 H Lymph % (Auto) 3.4 L [place] % (Auto) 4.0 Eos % (Auto) 0.0 Baso % (Auto) 0.1 Neut # (Auto) 14.0 H Lymph # (Auto) 0.5 L [place] # (Auto) 0.6 Eos # (Auto) 0.0 Baso # (Auto) 0.0 Immature Gran # (Auto) 0.1 Neutrophils % (Manual) Lymphocytes % (Manual) Monocytes % (Manual) Eosinophils % (Manual) Anisocytosis PT INR APTT Sodium 135.7 Potassium 3.63 Chloride 109.3 H Carbon Dioxide 15.8 L Anion Gap 14.23 BUN 92.2 H* Creatinine 3.82 H* Estimated GFR (MDRD) 16.00 BUN/Creatinine Ratio 24.13 Glucose 212.4 H Lactic Acid 1.55 Calcium 8.87 Iron TIBC % Saturation Ferritin Total Bilirubin AST ALT Alkaline Phosphatase Total Protein Albumin Globulin Albumin/Globulin Ratio Procalcitonin 0.11 H Urine Color Yellow Urine Clarity Clear Urine pH 5.0 Ur Specific [place] 1.020 Urine Protein 2+ H Urine Glucose (UA) Trace H Urine Ketones Negative Urine Blood Trace-intact H Urine Nitrite Negative Urine Bilirubin Negative Urine Urobilinogen 0.2 Ur Leukocyte Esterase Negative SARS CoV-2 RNA Rapid LUKASZ 08/20/23 05:00 WBC 12.18 H RBC 2.59 L Hgb 7.7 L Hct 24.9 L MCV 96.1 H MCH 29.7 MCHC 30.9 L RDW Coeff of [place] 18.6 H Plt Count 111 L Immature Gran % (Auto) 0.5 Neut % (Auto) 87.7 H Lymph % (Auto) 5.7 L [place] % (Auto) 5.7 Eos % (Auto) 0.3 Baso % (Auto) 0.1 Neut # (Auto) 10.7 H Lymph # (Auto) 0.7 [place] # (Auto) 0.7 Eos # (Auto) 0.0 Baso # (Auto) 0.0 Immature Gran # (Auto) 0.1 Neutrophils % (Manual) Lymphocytes % (Manual) Monocytes % (Manual) Eosinophils % (Manual) Anisocytosis PT INR APTT Sodium 134.8 Potassium 3.52 Chloride 112.1 H Carbon Dioxide 16.9 L Anion Gap 9.32 BUN 87.7 H* Creatinine 3.52 H* Estimated GFR (MDRD) 17.00 BUN/Creatinine Ratio 24.91 Glucose 132.3 H D Lactic Acid Calcium 8.48 Iron 31.6 L TIBC 125 L % Saturation 25 Ferritin 133.00 Total Bilirubin 0.35 AST 24.8 ALT 19.2 Alkaline Phosphatase 64.1 Total Protein 4.50 L Albumin 2.11 L Globulin 2.39 Albumin/Globulin Ratio 0.88 Procalcitonin Urine Color Urine Clarity Urine pH Ur Specific [place] Urine Protein Urine Glucose (UA) Urine Ketones Urine Blood Urine Nitrite Urine Bilirubin Urine Urobilinogen Ur Leukocyte Esterase SARS CoV-2 RNA Rapid LUKASZ Microbiology This Visit 08/19/23 22:06 Drainage Wound Culture - Preliminary Imaging Imaging: EXAM: SINGLE VIEW CHEST. HISTORY: Weakness COMPARISON: 02/08/2017 FINDINGS: The car mediastinal silhouette appears enlarged. Mild calcified plaques overlie the aorta. Pulmonary vascularity is within normal limits. No focal airspace opacity or pleural effusion is seen. Punctate left lower lung zone calcified granuloma is suggested. The bones are diffusely demineralized. IMPRESSION: No acute cardiopulmonary findings. Mild cardiomegaly versus magnified heart size by technique. Review Statement Review Statement: I have independently reviewed and interpreted the labs/EKGs/imaging that were ordered by the ER provider. I have reviewed all outside records that are available currently in our EMR including imaging/notes/labs from previous visits. Plan Plan: 1. Acute on Chronic Renal Failure - baseline creatinine appears to be around 1.3 based on previous. Received 2L NS in ER then started on sodium bicarb in LR@100mL/hr, hydrating gently due to CHF, I&O 2. Sepsis r/o - no s/sx of infection, WBC likely reactive due to above, tachycardia/A fib secondary to missing medications, blood cultures pending, procal mildly elevated 3. Metabolic acidosis secondary to renal failure - Improving, sodium bicarb in LR@100mL/hr, serial bmps 4. Anemia - chronic, hemoglobin 7.7 today, checked iron studies and showed low, increased home iron to BID 5. A fib - uncontrolled on admission due to missed medications, gave 1 PO 50 mg dose of metoprolol and then night time home medications, rate controlled now, continued home medications 6. Hypertension - uncontrolled due to missed meds, restarted home medications 7. Diabetes Mellitus, Type 2 - chronic, accuchecks QID with SSI and home lantus dose, ADA diet DVT Prophylaxis: Xarelto Time Spent: Greater than 80 minutes spent with patient, 50% of the time spent with this patient was devoted to counseling and coordination of care. Advanced [facility] Plannin minutes spent discussing advance care planning. Disposition: Admit to: Med/Surg DNR Discussed Plan of Care with Dr. Kevin Rust. Medications Medication Orders: Medications Ordered Category Date Time Status Acetaminophen [Tylenol] Meds 08/19/23 15:36 Active 650 mg PO Q4H PRN Allopurinol [Zyloprim] Meds 08/20/23 09:00 Active 200 mg PO DAILY Atorvastatin Calcium [Lipitor] Meds 08/20/23 09:00 Active 20 mg PO DAILY Calcium Carbonate [Tums Chewable] Meds 08/19/23 20:51 Active 500 mg PO Q6H PRN Clonidine HCl [Catapres] Meds 08/19/23 21:00 Active 0.2 mg PO BID Diltiazem HCl [Cardizem] Meds 08/19/23 21:00 Active 60 mg PO Q12HR Ferrous Sulfate Meds 08/20/23 09:00 Active 324 mg PO DAILY Insulin Glargine,Hum.rec.anlog [Lantus] Meds 08/20/23 09:00 Active 10 unit SUBCUT DAILY Insulin Regular, Human [Humulin R] Meds 08/19/23 18:23 Active See Protocol SUBCUT PRN PRN Latanoprost [Xalatan] Meds 08/21/23 21:00 Active 1 drop EACHEYE BEDTIME Metoprolol Tartrate [Lopressor] Meds 08/20/23 09:00 Active 100 mg PO BID Non-Formulary Medication Meds 08/20/23 17:00 Active 1 each PO QPM [place]-3/Dha/Epa/Fish Oil [[place]-3 Fish Oil] Meds 08/20/23 09:00 Active 3,000 mg PO DAILY Ringers Lactated Solution [Lactated Ringers] 1,000 ml Meds 08/19/23 16:00 Active Sodium Bicarb 8.4% Syringe [Sodium Bicarbonate 8.4%] 50 meq IV 100 mls/hr Sodium Bicarbonate Meds 08/19/23 21:00 Active 650 mg PO TID Terazosin HCl [Hytrin] Meds 08/19/23 21:00 Active 5 mg PO BID
[2023-08-20] MEDS: HUMULIN R SUBCUT PRN (11:46)
[2023-08-20 16:39] LABS: BASOPHILS % (AUTO) 0.1 % (0.0-3.0); EOSINOPHILS # (AUTO) 0.2 K/ul (0.0-0.7); EOSINOPHILS % (AUTO) 1.6 % (0.0-7.0); HEMATOCRIT 27.1 % (42.0-52.0); HEMOGLOBIN 8.2 g/dl (14.0-18.0); IMMATURE GRANULOCYTE # (AUTO) 0.1 (0.0-1.0); IMMATURE GRANULOCYTE % (AUTO) 0.6 % (0.0-5.0); LYMPHOCYTES # (AUTO) 0.8 K/uL (0.60-3.4); LYMPHOCYTES % (AUTO) 6.5 (10.0-50.0); MEAN CORPUSCULAR HEMOGLOBIN 29.7 pg (27.0-31.0); MEAN CORPUSCULAR HGB CONC 30.3 (31.8-35.4); MEAN CORPUSCULAR VOLUME 98.2 fl (80.0-94.0); MONOCYTES # (AUTO) 0.7 K/uL (0.4-2.0); NEUTROPHILS # (AUTO) 10.4 K/ul (2.0-6.9); NEUTROPHILS % (AUTO) 85.2 % (42.2-75.2); PLATELET COUNT 124 10^3/uL (140-440); RDW COEFFICIENT OF VARIATION 18.9 % (11.6-14.8); RED BLOOD COUNT 2.76 10^6/ul (4.70-6.10); WHITE BLOOD COUNT 12.23 K/ul (4.2-10.2)
[2023-08-20 16:51] LABS: CALCIUM 8.42 mg/dL (8.4-10.2); CARBON DIOXIDE 18.7 mmol/L (22-30.0); CHLORIDE 109.2 mmol/L (98-107); CREATININE 3.43 mg/dL (0.60-1.10); GLUCOSE 135.1 mg/dL (74-106); POTASSIUM 3.61 mmol/L (3.5-5.1); SODIUM 135.7 mmol/L (134.5-145)
[2023-08-20 16:58] LABS: BLOOD UREA NITROGEN 85.1 mg/dL (9-20)
[2023-08-20] MEDS ORDERED: XARELTO PO SCH (17:00)
[2023-08-20] MEDS: NON-FORMULARY MEDICATION PO SCH (17:15)
[2023-08-20 18:49] LABS: OCCULT BLOOD SAMPLE 1 POSITIVE (NEGATIVE)
[2023-08-21 05:13] LABS: BASOPHILS % (AUTO) 0.1 % (0.0-3.0); EOSINOPHILS # (AUTO) 0.3 K/ul (0.0-0.7); EOSINOPHILS % (AUTO) 2.6 % (0.0-7.0); HEMATOCRIT 25.7 % (42.0-52.0); HEMOGLOBIN 7.7 g/dl (14.0-18.0); IMMATURE GRANULOCYTE # (AUTO) 0.1 (0.0-1.0); IMMATURE GRANULOCYTE % (AUTO) 0.6 % (0.0-5.0); LYMPHOCYTES # (AUTO) 0.9 K/uL (0.60-3.4); MEAN CORPUSCULAR HEMOGLOBIN 29.4 pg (27.0-31.0); MEAN CORPUSCULAR VOLUME 98.1 fl (80.0-94.0); MONOCYTES # (AUTO) 0.6 K/uL (0.4-2.0); MONOCYTES % (AUTO) 6.3 (0-10); NEUTROPHILS % (AUTO) 81.4 % (42.2-75.2); PLATELET COUNT 119 10^3/uL (140-440); RDW COEFFICIENT OF VARIATION 18.9 % (11.6-14.8); RED BLOOD COUNT 2.62 10^6/ul (4.70-6.10); WHITE BLOOD COUNT 9.87 K/ul (4.2-10.2)
[2023-08-21 05:35] LABS: ALANINE AMINOTRANSFERASE 26.4 U/L (0-50); ALBUMIN 2.1 g/dL (3.5-5.0); ALKALINE PHOSPHATASE 60.4 U/L (56-119); ASPARTATE AMINO TRANSFERASE 33.2 U/L (17-59); BILIRUBIN,TOTAL 0.38 mg/dL (0.2-1.3); CALCIUM 8.27 mg/dL (8.4-10.2); CARBON DIOXIDE 19.6 mmol/L (22-30.0); CHLORIDE 110.9 mmol/L (98-107); CREATININE 3.43 mg/dL (0.60-1.10); GLUCOSE 67.2 mg/dL (74-106); POTASSIUM 3.67 mmol/L (3.5-5.1); SODIUM 135.7 mmol/L (134.5-145); TOTAL PROTEIN 4.42 g/dL (6.3-8.2)
[2023-08-21 05:39] LABS: BLOOD UREA NITROGEN 85.6 mg/dL (9-20)
[2023-08-21 09:09] LABS: OCCULT BLOOD SAMPLE 2 NO SPECIMEN RECEIVED (NEGATIVE)
[2023-08-21 09:10] LABS: OCCULT BLOOD SAMPLE 3 NO SPECIMEN RECEIVED (NEGATIVE)
[2023-08-21] MEDS: TUMS CHEWABLE PO PRN (09:47)
[2023-08-21] MEDS: PROTONIX IVP SCH (09:52)
--- NOTE | 2023-08-21 14:38 | PCM.PROG ---
Date/Time Seen Date Seen by Provider: 08/21/23 Time Seen by Provider: 08:30 Provider Provider: DEMETRI RYAN [facility] Chief Complaint Chief Complaint: ACUTE CHRONIC RENAL FAILURE Subjective Subjective: Patient states he's had dark stools lately but cannot quantify how long. states he's been taking pepto bismol very often. Pt complains of an "upset stomach" but has difficulty characterizing his discomfort. He had a dark BM yesterday and occult stool positive. Hgb trending down today. No hx of colonoscopy in the past. Pt has been on bicarb drip. Cr and bicarb improved. 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 Chronic discoloration of the skin surrounding the wound. No acute erythema or warmth noted. Right medial leg - Chronic wound, dry bed, no discharge noted. Vital Signs Vital Signs: Vital Signs: Last 24 Hours 08/20/23 15:00 08/20/23 16:00 08/20/23 17:00 Temperature Temperature Source Pulse Rate Respiratory Rate Blood Pressure Blood Pressure Mean Blood Pressure Location Blood Pressure Position O2 Sat by Pulse Oximetry Oxygen Delivery Method Room Air Room Air Room Air Height Weight Telemetry Type Telemetry Monitoring Irregular Telemetry Rate (Approximate) Telemetry Heart Rate EKG QRS Interval Telemetry Strip [place] 08/20/23 18:00 08/20/23 18:00 08/20/23 19:00 Temperature 97.6 F Temperature Source Temporal Artery Scan Pulse Rate 64 Respiratory Rate 16 Blood Pressure 118/66 Blood Pressure Mean 83 Blood Pressure Location Right Arm Blood Pressure Position Sitting O2 Sat by Pulse Oximetry 94 L Oxygen Delivery Method Room Air Room Air Height Weight Telemetry Type Remote Telemetry Telemetry Monitoring Continues Irregular Telemetry Rate (Approximate) 50-60 BPM Telemetry Heart Rate EKG QRS Interval 0.13 H Telemetry Strip Reading afib with BBB and PVC 08/20/23 19:00 08/20/23 20:00 08/20/23 20:00 Temperature Temperature Source Pulse Rate Respiratory Rate Blood Pressure Blood Pressure Mean Blood Pressure Location Blood Pressure Position O2 Sat by Pulse Oximetry Oxygen Delivery Method Room Air Room Air Room Air Height Weight Telemetry Type Telemetry Monitoring Irregular Telemetry Rate (Approximate) Telemetry Heart Rate EKG QRS Interval Telemetry Strip [place] 08/20/23 20:40 08/20/23 21:00 08/20/23 22:00 Temperature 98.3 F Temperature Source Temporal Artery Scan Pulse Rate 82 Respiratory Rate 17 Blood Pressure 131/73 Blood Pressure Mean 92 Blood Pressure Location Left Arm Blood Pressure Position Supine O2 Sat by Pulse Oximetry 99 Oxygen Delivery Method Room Air Room Air Room Air Height Weight Telemetry Type Telemetry Monitoring Irregular Telemetry Rate (Approximate) Telemetry Heart Rate EKG QRS Interval Telemetry Strip [place] 08/20/23 23:00 08/21/23 00:00 08/21/23 01:00 Temperature Temperature Source Pulse Rate Respiratory Rate Blood Pressure Blood Pressure Mean Blood Pressure Location Blood Pressure Position O2 Sat by Pulse Oximetry Oxygen Delivery Method Room Air Room Air Height Weight Telemetry Type Remote Telemetry Telemetry Monitoring Continues Irregular Telemetry Rate (Approximate) 50-60 BPM Telemetry Heart Rate EKG QRS Interval 0.13 H Telemetry Strip [place] AFIB/BBB/PVC 08/21/23 01:00 08/21/23 02:00 08/21/23 02:57 Temperature Temperature Source Pulse Rate Respiratory Rate Blood Pressure Blood Pressure Mean Blood Pressure Location Blood Pressure Position O2 Sat by Pulse Oximetry Oxygen Delivery Method Room Air Room Air Room Air Height Weight Telemetry Type Telemetry Monitoring Irregular Telemetry Rate (Approximate) Telemetry Heart Rate EKG QRS Interval Telemetry Strip [place] 08/21/23 04:00 08/21/23 04:58 08/21/23 05:31 Temperature 98.8 F Temperature Source Oral Pulse Rate 76 Respiratory Rate 18 Blood Pressure 140/79 Blood Pressure Mean 99 Blood Pressure Location Right Arm Blood Pressure Position Supine O2 Sat by Pulse Oximetry 100 Oxygen Delivery Method Room Air Room Air Room Air Height Weight Telemetry Type Telemetry Monitoring Irregular Telemetry Rate (Approximate) Telemetry Heart Rate EKG QRS Interval Telemetry Strip [place] 08/21/23 06:00 08/21/23 07:00 08/21/23 07:00 Temperature Temperature Source Pulse Rate Respiratory Rate Blood Pressure Blood Pressure Mean Blood Pressure Location Blood Pressure Position O2 Sat by Pulse Oximetry Oxygen Delivery Method Room Air Room Air Height Weight Telemetry Type Remote Telemetry Telemetry Monitoring Continues Irregular Telemetry Rate (Approximate) 80-90 BPM Telemetry Heart Rate 83 EKG QRS Interval 0.17 H Telemetry Strip [place] AFIB w/BBB & PVCs 08/21/23 07:00 08/21/23 08:00 08/21/23 08:00 Temperature Temperature Source Pulse Rate Respiratory Rate Blood Pressure Blood Pressure Mean Blood Pressure Location Blood Pressure Position O2 Sat by Pulse Oximetry Oxygen Delivery Method Room Air Room Air Height Weight 225 lb Telemetry Type Telemetry Monitoring Irregular Telemetry Rate (Approximate) Telemetry Heart Rate EKG QRS Interval Telemetry Strip [place] 08/21/23 09:00 08/21/23 09:42 08/21/23 10:00 Temperature 98.8 F Temperature Source Oral Pulse Rate 86 Respiratory Rate 18 Blood Pressure 119/71 Blood Pressure Mean 87 Blood Pressure Location Left Arm Blood Pressure Position Supine O2 Sat by Pulse Oximetry 99 Oxygen Delivery Method Room Air Room Air Height 6 ft Weight 225 lb Telemetry Type Telemetry Monitoring Irregular Telemetry Rate (Approximate) Telemetry Heart Rate EKG QRS Interval Telemetry Strip [place] 08/21/23 10:00 08/21/23 11:00 Temperature Temperature Source Pulse Rate Respiratory Rate Blood Pressure Blood Pressure Mean Blood Pressure Location Blood Pressure Position O2 Sat by Pulse Oximetry Oxygen Delivery Method Room Air Room Air Height Weight Telemetry Type Telemetry Monitoring Irregular Telemetry Rate (Approximate) Telemetry Heart Rate EKG QRS Interval Telemetry Strip Reading Lab Results Lab Results: Lab Results: Last 24 Hours 08/21/23 08/21/23 08/21/23 11:59 05:28 05:08 WBC 9.87 RBC 2.62 L Hgb 7.7 L Hct 25.7 L MCV 98.1 H MCH 29.4 MCHC 30.0 L RDW Coeff of [place] 18.9 H Plt Count 119 L Immature Gran % (Auto) 0.6 Neut % (Auto) 81.4 H Lymph % (Auto) 9.0 L [place] % (Auto) 6.3 Eos % (Auto) 2.6 Baso % (Auto) 0.1 Neut # (Auto) 8.0 H Lymph # (Auto) 0.9 [place] # (Auto) 0.6 Eos # (Auto) 0.3 Baso # (Auto) 0.0 Immature Gran # (Auto) 0.1 Sodium 135.7 Potassium 3.67 Chloride 110.9 H Carbon Dioxide 19.6 L Anion Gap 8.87 BUN 85.6 H* Creatinine 3.43 H Estimated GFR (MDRD) 18.00 BUN/Creatinine Ratio 24.95 Glucose 67.2 L D Calcium 8.27 L Total Bilirubin 0.38 AST 33.2 ALT 26.4 Alkaline Phosphatase 60.4 Total Protein 4.42 L Albumin 2.10 L Globulin 2.32 Albumin/Globulin Ratio 0.90 Stl Occult Blood (IFOB) Stool Occult Blood #2 Stool Occult Blood #3 Blood Type A POSITIVE A POSITIVE Antibody Screen Negative 08/20/23 08/20/23 18:35 16:30 WBC 12.23 H RBC 2.76 L Hgb 8.2 L Hct 27.1 L MCV 98.2 H MCH 29.7 MCHC 30.3 L RDW Coeff of [place] 18.9 H Plt Count 124 L Immature Gran % (Auto) 0.6 Neut % (Auto) 85.2 H Lymph % (Auto) 6.5 L [place] % (Auto) 6.0 Eos % (Auto) 1.6 Baso % (Auto) 0.1 Neut # (Auto) 10.4 H Lymph # (Auto) 0.8 [place] # (Auto) 0.7 Eos # (Auto) 0.2 Baso # (Auto) 0.0 Immature Gran # (Auto) 0.1 Sodium 135.7 Potassium 3.61 Chloride 109.2 H Carbon Dioxide 18.7 L Anion Gap 11.41 BUN 85.1 H* Creatinine 3.43 H Estimated GFR (MDRD) 18.00 BUN/Creatinine Ratio 24.81 Glucose 135.1 H Calcium 8.42 Total Bilirubin AST ALT Alkaline Phosphatase Total Protein Albumin Globulin Albumin/Globulin Ratio Stl Occult Blood (IFOB) Positive Stool Occult Blood #2 No specimen received Stool Occult Blood #3 No specimen received Blood Type Antibody Screen Additional Comments Additional Comments: I have independently reviewed and interpreted the labs/EKGs/imaging ordered during this hospital stay. I have reviewed outside records that are available in our EMR that pertain to medical stay including imaging/notes/labs from previous visits. Active Medications Active Medications: Medications Generic Name Dose Route Start Last Admin Trade Name Freq PRN Reason Stop Dose Admin Acetaminophen 650 mg 08/19/23 15:36 Acetaminophen 325 Mg Tablet PO Q4H PRN Mild Pain Allopurinol 200 mg 08/20/23 09:00 08/21/23 09:53 Allopurinol 100 Mg Tablet PO 200 mg DAILY LORRI Administration Atorvastatin Calcium 20 mg 08/20/23 09:00 08/21/23 09:55 Atorvastatin Calcium 20 Mg Tablet PO 20 mg DAILY LORRI Administration Calcium Carbonate/Glycine 500 mg 08/19/23 20:51 08/21/23 09:47 Calcium Carbonate 500 Mg Tab.Chew PO 500 mg Q6H PRN Administration Heartburn Clonidine 0.2 mg 08/19/23 21:00 08/21/23 09:54 Clonidine Hcl 0.1 Mg Tablet PO 0.2 mg BID LORRI Administration Diltiazem HCl 60 mg 08/19/23 21:00 08/21/23 09:52 Diltiazem Hcl 60 Mg Tablet PO 60 mg Q12HR LORRI Administration Ferrous Sulfate 324 mg 08/20/23 21:00 08/21/23 09:54 Ferrous Sulfate 324 Mg Tablet. PO 324 mg BID LORRI Administration Fish Oil 3,000 mg 08/20/23 09:00 08/21/23 09:52 [place]-3/Dha/Epa/Fish Oil 1,000 Mg Capsule PO 3,000 mg DAILY [facility] Administration CEFTRIAXONE/D5W 1 GM PREMIX 1 gm in 50 mls @ 100 mls/hr 08/21/23 14:00 Rocephin 1 Gm/50 Ml D5w IV 08/24/23 13:59 DAILY [facility] Doxycycline Hyclate 100 mg/ 100 mls @ 50 mls/hr 08/21/23 21:00 Sodium Chloride IV 08/24/23 20:59 Q12HR [facility] Insulin Glargine 10 unit 08/20/23 09:00 08/21/23 10:00 Insulin Glargine,Hum.Rec.Anlog 100 Units/Ml SUBCUT Not Given DAILY [facility] Insulin Human Regular 0 unit 08/19/23 18:23 08/20/23 20:46 Insulin Regular, Human 100 Unit/Ml (10ml) Vial SUBCUT 3 unit PRN PRN Administration Hyperglycemia Protocol Latanoprost 1 drop 08/21/23 21:00 Latanoprost 2.5 Ml Opth Emma EACHEYE BEDTIME [facility] Metoprolol Tartrate 100 mg 08/20/23 09:00 08/21/23 10:00 Metoprolol Tartrate 50 Mg Tablet PO Not Given BID LORRI Pantoprazole Sodium 40 mg 08/21/23 09:00 08/21/23 09:52 Pantoprazole Sodium 40 Mg Vial IVP 40 mg BID LORRI Administration Sodium Bicarbonate 650 mg 08/19/23 21:00 08/21/23 09:55 Sodium Bicarbonate 650 Mg Tablet PO 650 mg TID LORRI Administration Terazosin HCl 5 mg 08/19/23 21:00 08/21/23 09:55 Terazosin Hcl 5 Mg Capsule PO 5 mg BID LORRI Administration Plan Plan: 1. Acute upper GI bleed - Occult stool positive. Pt has epigastric discomfort. Has been taking pepto bismol often. On xarelto. Would benefit from transfer for scopes. Hold xarelto. Add protonix 40 bid IVP. 2. Acute on Chronic Renal Failure - Improved. baseline creatinine appears to be around 3.3 based on previous. Received 2L NS in ER then started on sodium bicarb in LR@100mL/hr. Stopped bicarb drip this AM. 3. Uremia - BUN continues to be elevated, despite improvement of Cr and bicarb. Occult stool positive. Possibly elevated in setting of GI bleed. 4. Sepsis r/o - WBC count improved, blood cultures negative so far. Could be due to chronic wounds. 5. Metabolic acidosis secondary to renal failure - Improving, monitor bicarb 6. Acute on chronic anemia - Hemoglobin 7.7 today, checked iron studies and showed low, increased home iron to BID. Occult stool positive. Repeat hemoglobin now. Type and screen. 7. A fib - rate controlled now, continued cardizem, hold metoprolol 8. Hypertension - uncontrolled due to missed meds, restarted home medications 9. Diabetes Mellitus, Type 2 - chronic, accuchecks QID with SSI and home lantus dose, ADA diet. Last a1c 6.6 back in May 22. 10. Diabetic foot/leg wounds with dry gangrene, zeynep - Pt follows with vascular/wound care in [facility]. Wound care sent over recent wound culture showing MRSA and serratia sensitive to doxy and rocephin respectively. DVT Prophylaxis: Holding Attempting to transfer today for acute GI bleed - needs further work up. [facility] - at capacity (11:45, 1340, 1515, 2045) [facility] - at capacity (11:50, told to call back after 1500). Called back 1506 - still no beds. Advised not to call back until after [address] [facility] - high call volume, only given option to leave message, awaiting call back. As of 2039, no call back and still only getting option to leave message. declines trying elsewhere at this time. Will continue to reach out to these 3 facilities tomorrow. Repeat hemoglobin slightly lower. 1 u PRBCs ordered. NPO after midnight with d51/2ns fluids in light of possible transfer tomorrow for procedure. Review Statement Review Statement: I have personally discussed and reviewed the patient's visit/currently labs/noemi ging/decision making with Dr. Rust, my supervising attending. Greater that 50 minutes spent with patient, 50% of the time spent with this patient was devoted to counseling and coordination of care.
[2023-08-21] MEDS: ROCEPHIN 1 GM/50 ML D5W 1 GM/50 ML BAG IV SCH (16:02)
[2023-08-21] MEDS: LASIX IVP ONE (20:12)
[2023-08-21] MEDS ORDERED: DEXTROSE 50%-WATER ABBOJECT IVP PRN (20:14)
[2023-08-21] MEDS: DOXY-100 100 MG in SODIUM CHLORIDE 100ML 100 ML IV SCH (20:17)
[2023-08-21] MEDS: XALATAN EACHEYE SCH (20:23)
[2023-08-21 21:49] LABS: HEMATOCRIT 26.2 % (42.0-52.0)
[2023-08-21] MEDS ORDERED: DEXTROSE 5%-NS IV SOLUTION 1,000 ML IV SCH (22:00)
[2023-08-21] MEDS: DEXTROSE 5%-1/2NS IV SOLUTION 1,000 ML IV SCH (22:23)
[2023-08-22 06:03] LABS: BASOPHILS % (AUTO) 0.1 % (0.0-3.0); EOSINOPHILS # (AUTO) 0.3 K/ul (0.0-0.7); EOSINOPHILS % (AUTO) 3.8 % (0.0-7.0); HEMATOCRIT 26.7 % (42.0-52.0); HEMOGLOBIN 8.2 g/dl (14.0-18.0); IMMATURE GRANULOCYTE # (AUTO) 0.1 (0.0-1.0); IMMATURE GRANULOCYTE % (AUTO) 0.6 % (0.0-5.0); LYMPHOCYTES # (AUTO) 0.7 K/uL (0.60-3.4); LYMPHOCYTES % (AUTO) 8.1 (10.0-50.0); MEAN CORPUSCULAR HEMOGLOBIN 29.2 pg (27.0-31.0); MEAN CORPUSCULAR HGB CONC 30.7 (31.8-35.4); MONOCYTES # (AUTO) 0.6 K/uL (0.4-2.0); MONOCYTES % (AUTO) 7.3 (0-10); NEUTROPHILS # (AUTO) 6.4 K/ul (2.0-6.9); NEUTROPHILS % (AUTO) 80.1 % (42.2-75.2); PLATELET COUNT 99 10^3/uL (140-440); RDW COEFFICIENT OF VARIATION 21.1 % (11.6-14.8); RED BLOOD COUNT 2.81 10^6/ul (4.70-6.10); WHITE BLOOD COUNT 7.99 K/ul (4.2-10.2)
[2023-08-22 06:17] LABS: ALANINE AMINOTRANSFERASE 27.4 U/L (0-50); ALBUMIN 2.19 g/dL (3.5-5.0); ASPARTATE AMINO TRANSFERASE 31.4 U/L (17-59); BILIRUBIN,TOTAL 0.44 mg/dL (0.2-1.3); CALCIUM 8.31 mg/dL (8.4-10.2); CARBON DIOXIDE 17.8 mmol/L (22-30.0); CHLORIDE 110.5 mmol/L (98-107); CREATININE 3.24 mg/dL (0.60-1.10); GLUCOSE 124.7 mg/dL (74-106); POTASSIUM 3.64 mmol/L (3.5-5.1); SODIUM 134.7 mmol/L (134.5-145); TOTAL PROTEIN 4.57 g/dL (6.3-8.2)
[2023-08-22 06:20] LABS: BLOOD UREA NITROGEN 82.4 mg/dL (9-20)
[2023-08-22] MEDS: LASIX IVP ONE (10:03)
--- NOTE | 2023-08-22 13:35 | PCM.PROG ---
Date/Time Seen Date Seen by Provider: 08/22/23 Time Seen by Provider: 08:20 Provider Provider: DEMETRI RYAN [facility]-C, [facility] Chief Complaint Chief Complaint: ACUTE CHRONIC RENAL FAILURE Subjective Subjective: Patient had HR dipping into 20s while asleep last night. Improved when he woke to 40s. Held his cardizem, HR now in upper 50s. He states he's feeling ok today otherwise. Hasn't had any BMs in last 24 hrs. Received 1u PRBCs yesterday. 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 Chronic discoloration of the skin surrounding the wound. No acute erythema or warmth noted. Right medial leg - Chronic wound, dry bed, no discharge noted. Vital Signs Vital Signs: Vital Signs: Last 24 Hours 08/21/23 14:00 08/21/23 14:00 08/21/23 17:58 Temperature 98.6 F 97.4 F L Temperature Source Oral Pulse Rate 64 66 Respiratory Rate 17 18 Blood Pressure 120/60 127/74 Blood Pressure Mean 80 91 Blood Pressure Location Left Arm Blood Pressure Position Supine O2 Sat by Pulse Oximetry 97 Oxygen Delivery Method Room Air Room Air Telemetry Type Telemetry Monitoring Irregular Telemetry Rate (Approximate) EKG QRS Interval Telemetry Strip Reading 08/21/23 18:00 08/21/23 18:13 08/21/23 19:00 Temperature 97.4 F L 97.5 F L Temperature Source Oral Pulse Rate 66 68 Respiratory Rate 18 16 Blood Pressure 127/74 136/70 Blood Pressure Mean 91 92 Blood Pressure Location Left Arm Blood Pressure Position Supine O2 Sat by Pulse Oximetry 98 Oxygen Delivery Method Room Air Telemetry Type Remote Telemetry Telemetry Monitoring Continues Irregular Telemetry Rate (Approximate) 60-70 BPM EKG QRS Interval 0.09 Telemetry Strip Reading A-FIB 08/21/23 19:13 08/21/23 20:00 08/21/23 20:13 Temperature 98.4 F 98.2 F Temperature Source Pulse Rate 70 77 Respiratory Rate 18 18 Blood Pressure 126/63 147/87 H Blood Pressure Mean 84 107 Blood Pressure Location Blood Pressure Position O2 Sat by Pulse Oximetry Oxygen Delivery Method Room Air Telemetry Type Telemetry Monitoring Irregular Telemetry Rate (Approximate) EKG QRS Interval Telemetry Strip Reading 08/21/23 20:40 08/21/23 22:00 08/22/23 01:00 Temperature 98.2 F 98.2 F Temperature Source Oral Pulse Rate 77 77 Respiratory Rate 18 18 Blood Pressure 147/87 H 147/87 H Blood Pressure Mean 107 107 Blood Pressure Location Right Arm Blood Pressure Position Supine O2 Sat by Pulse Oximetry 98 Oxygen Delivery Method Room Air Telemetry Type Remote Telemetry Telemetry Monitoring Continues Irregular Telemetry Rate (Approximate) 50-60 BPM EKG QRS Interval 0.12 H Telemetry Strip Reading A-FIB WITH BBB 08/22/23 01:51 08/22/23 05:37 08/22/23 06:57 Temperature 97.6 F 97.5 F L Temperature Source Temporal Artery Scan Temporal Artery Scan Pulse Rate 55 L 47 L Respiratory Rate 16 16 Blood Pressure 131/76 109/63 Blood Pressure Mean 94 78 Blood Pressure Location Right Arm Left Arm Blood Pressure Position Supine Supine O2 Sat by Pulse Oximetry 99 99 Oxygen Delivery Method Room Air Room Air Telemetry Type Remote Telemetry Telemetry Monitoring Continues Irregular Telemetry Rate (Approximate) 50's EKG QRS Interval 0.14 H Telemetry Strip Reading Atrial fib with BBB with Dayron rate 08/22/23 10:00 08/22/23 13:00 Temperature 97.5 F L Temperature Source Oral Pulse Rate 64 Respiratory Rate 19 Blood Pressure 148/73 H Blood Pressure Mean 98 Blood Pressure Location Left Arm Blood Pressure Position Supine O2 Sat by Pulse Oximetry 96 Oxygen Delivery Method Room Air Telemetry Type Remote Telemetry Telemetry Monitoring Continues Irregular Telemetry Rate (Approximate) 60's EKG QRS Interval 0.15 H Telemetry Strip Reading Atrial Fib with BBB Lab Results Lab Results: Lab Results: Last 24 Hours 08/22/23 08/21/23 08/21/23 05:58 21:40 14:46 WBC 7.99 RBC 2.81 L Hgb 8.2 L 8.0 L 7.5 L Hct 26.7 L 26.2 L MCV 95.0 H MCH 29.2 MCHC 30.7 L RDW Coeff of Ebenezer 21.1 H Plt Count 99 L Immature Gran % (Auto) 0.6 Neut % (Auto) 80.1 H Lymph % (Auto) 8.1 L Dickens % (Auto) 7.3 Eos % (Auto) 3.8 Baso % (Auto) 0.1 Neut # (Auto) 6.4 Lymph # (Auto) 0.7 Dickens # (Auto) 0.6 Eos # (Auto) 0.3 Baso # (Auto) 0.0 Immature Gran # (Auto) 0.1 Sodium 134.7 Potassium 3.64 Chloride 110.5 H Carbon Dioxide 17.8 L Anion Gap 10.04 BUN 82.4 H* Creatinine 3.24 H Estimated GFR (MDRD) 19.00 BUN/Creatinine Ratio 25.43 Glucose 124.7 H Calcium 8.31 L Total Bilirubin 0.44 AST 31.4 ALT 27.4 Alkaline Phosphatase 60.0 Total Protein 4.57 L Albumin 2.19 L Globulin 2.38 Albumin/Globulin Ratio 0.92 Procalcitonin < 0.05 Blood Type Antibody Screen Crossmatch ([facility]) 08/21/23 11:59 WBC RBC Hgb Hct MCV MCH MCHC RDW Coeff of Ebenezer Plt Count Immature Gran % (Auto) Neut % (Auto) Lymph % (Auto) Dickens % (Auto) Eos % (Auto) Baso % (Auto) Neut # (Auto) Lymph # (Auto) Dickens # (Auto) Eos # (Auto) Baso # (Auto) Immature Gran # (Auto) Sodium Potassium Chloride Carbon Dioxide Anion Gap BUN Creatinine Estimated GFR (MDRD) BUN/Creatinine Ratio Glucose Calcium Total Bilirubin AST ALT Alkaline Phosphatase Total Protein Albumin Globulin Albumin/Globulin Ratio Procalcitonin Blood Type A POSITIVE Antibody Screen Negative Crossmatch ([facility]) See Detail Additional Comments Additional Comments: I have independently reviewed and interpreted the labs/EKGs/imaging ordered during this hospital stay. I have reviewed outside records that are available in our EMR that pertain to medical stay including imaging/notes/labs from previous visits. Active Medications Active Medications: Medications Generic Name Dose Route Start Last Admin Trade Name Freq PRN Reason Stop Dose Admin Acetaminophen 650 mg 08/19/23 15:36 Acetaminophen 325 Mg Tablet PO Q4H PRN Mild Pain Allopurinol 200 mg 08/20/23 09:00 08/22/23 09:45 Allopurinol 100 Mg Tablet PO 200 mg DAILY LORRI Administration Atorvastatin Calcium 20 mg 08/20/23 09:00 08/22/23 09:45 Atorvastatin Calcium 20 Mg Tablet PO 20 mg DAILY LORRI Administration Calcium Carbonate/Glycine 500 mg 08/19/23 20:51 08/21/23 09:47 Calcium Carbonate 500 Mg Tab.Chew PO 500 mg Q6H PRN Administration Heartburn Clonidine 0.2 mg 08/19/23 21:00 08/22/23 09:46 Clonidine Hcl 0.1 Mg Tablet PO 0.2 mg BID LORRI Administration Dextrose 50 ml 08/21/23 20:14 Dextrose 50 % In Water 50 Ml Disp.Syrin IVP ONCE PRN hypoglycemia Diltiazem HCl 60 mg 08/19/23 21:00 08/21/23 20:23 Diltiazem Hcl 60 Mg Tablet PO 60 mg Q12HR LORRI Administration Ferrous Sulfate 324 mg 08/20/23 21:00 08/22/23 09:45 Ferrous Sulfate 324 Mg Tablet. PO 324 mg BID LORRI Administration Fish Oil 3,000 mg 08/20/23 09:00 08/22/23 09:45 [place]-3/Dha/Epa/Fish Oil 1,000 Mg Capsule PO 3,000 mg DAILY LORRI Administration CEFTRIAXONE/D5W 1 GM PREMIX 1 gm in 50 mls @ 100 mls/hr 08/21/23 14:00 08/22/23 09:14 Rocephin 1 Gm/50 Ml D5w IV 08/24/23 13:59 100 mls/hr DAILY LORRI Administration Doxycycline Hyclate 100 mg/ 100 mls @ 50 mls/hr 08/21/23 21:00 08/22/23 09:46 Sodium Chloride IV 08/24/23 20:59 50 mls/hr Q12HR LORRI Administration Dextrose/Sodium Chloride 1,000 mls @ 75 mls/hr 08/21/23 22:00 08/22/23 12:49 Dextrose 5%-1/2ns Iv Solution IV 30 mls/hr .[id number] LORRI Infusion Insulin Glargine 10 unit 08/20/23 09:00 08/22/23 08:59 Insulin Glargine,Hum.Rec.Anlog 100 Units/Ml SUBCUT Not Given DAILY [facility] Insulin Human Regular 0 unit 08/19/23 18:23 08/21/23 18:31 Insulin Regular, Human 100 Unit/Ml (10ml) Vial SUBCUT 5 unit PRN PRN Administration Hyperglycemia Protocol Latanoprost 1 drop 08/21/23 21:00 08/21/23 20:23 Latanoprost 2.5 Ml Opth Emma EACHEYE 1 drop BEDTIME LORRI Administration Metoprolol Tartrate 100 mg 08/20/23 09:00 08/21/23 10:00 Metoprolol Tartrate 50 Mg Tablet PO Not Given BID LORRI Pantoprazole Sodium 40 mg 08/21/23 09:00 08/22/23 10:02 Pantoprazole Sodium 40 Mg Vial IVP 40 mg BID LORRI Administration Sodium Bicarbonate 650 mg 08/19/23 21:00 08/22/23 09:46 Sodium Bicarbonate 650 Mg Tablet PO 650 mg TID LORRI Administration Terazosin HCl 5 mg 08/19/23 21:00 08/22/23 09:45 Terazosin Hcl 5 Mg Capsule PO 5 mg BID LORRI Administration Plan Plan: 1. Acute upper GI bleed - Occult stool positive. Pt has epigastric discomfort. Has been taking pepto bismol often. On xarelto. Would benefit from transfer for scopes. Hold xarelto. Cont protonix 40 bid IVP. 2. Acute on Chronic Renal Failure - Improved. baseline creatinine appears to be around 3.3 based on previous. Received 2L NS in ER then started on sodium bicarb in LR@100mL/hr. Stopped bicarb drip 08/21 AM. 3. Uremia - BUN continues to be elevated, despite improvement of Cr and bicarb. Occult stool positive. Possibly elevated in setting of GI bleed. 4. Sepsis r/o - WBC count improved, blood cultures negative so far. Could be due to chronic wounds. 5. Metabolic acidosis secondary to renal failure - Improving, monitor bicarb 6. Acute on chronic anemia - S/p 1 u PRBCs on 08/21. Hemoglobin 8.2 today, checked iron studies and showed low, increased home iron to BID. Occult stool positive. 7. A fib - rate controlled now, hold metoprolol and cardizem due to bradycardia 8. Hypertension - uncontrolled due to missed meds, restarted home medications 9. Diabetes Mellitus, Type 2 - chronic, accuchecks QID, ADA diet. Last a1c 6.6 back in May 22. Holding insulin due to being NPO awaiting transfer. 10. Diabetic foot/leg wounds with dry gangrene, zeynep - Pt follows with vascular/wound care in [facility]. Wound care sent over recent wound culture showing MRSA and serratia sensitive to doxy and rocephin respectively. Contact precautions: DVT Prophylaxis: Holding Attempting to transfer for acute GI bleed - needs further work up. [facility] - at capacity 0850, [id number], don't call back until at least after 6 pm. [facility] - at capacity (0850, [id number]) [facility] - high call volume, only given option to leave message, awaiting call back since yesterday. Left another message. [facility] - 11:25 - placed on waitlist. At least 12 in ER ahead of him. [facility] 1159 - placed on waitlist, several in ER ahead of him and patient decline trying elsewhere at this time. Will allow patient to eat and stop D5 fluids at this time since no timely transfer occurring. Discussed with patient it is possible his hemoglobin will stabilize and he could potentially be discharged in next few days with outpatient work up. However, alternatively, his condition could continue to worsen and we are unable to treat a GIB effectively here. I suggested broadening where he's willing to be transferred to, to increase chances of getting a bed somewhere. He declines at this time. "We will just wait and see how it goes." Reiterated his code status with him, he does wish to continue to be a Full Code. Review Statement Review Statement: I have personally discussed and reviewed the patient's visit/currently labs/imaging/decision making with Dr. Rust, my supervising attending. Greater that 50 minutes spent with patient, 50% of the time spent with this patient was devoted to counseling and coordination of care.
[2023-08-22] MEDS: ROBITUSSIN DM SYRUP PO PRN (17:22)
[2023-08-22] MEDS ORDERED: ZOFRAN 4 MG/2 ML IVP PRN (18:15)
[2023-08-22] MEDS: DEXTROSE 5%-1/2NS IV SOLUTION 1,000 ML IV SCH (22:13)
[2023-08-23 06:15] LABS: BASOPHILS % (AUTO) 0.1 % (0.0-3.0); EOSINOPHILS # (AUTO) 0.2 K/ul (0.0-0.7); EOSINOPHILS % (AUTO) 2.6 % (0.0-7.0); HEMATOCRIT 25.5 % (42.0-52.0); HEMOGLOBIN 7.9 g/dl (14.0-18.0); IMMATURE GRANULOCYTE # (AUTO) 0.1 (0.0-1.0); IMMATURE GRANULOCYTE % (AUTO) 0.8 % (0.0-5.0); LYMPHOCYTES # (AUTO) 0.6 K/uL (0.60-3.4); LYMPHOCYTES % (AUTO) 7.4 (10.0-50.0); MEAN CORPUSCULAR HEMOGLOBIN 28.9 pg (27.0-31.0); MEAN CORPUSCULAR VOLUME 93.4 fl (80.0-94.0); MONOCYTES # (AUTO) 0.5 K/uL (0.4-2.0); MONOCYTES % (AUTO) 6.7 (0-10); NEUTROPHILS # (AUTO) 6.1 K/ul (2.0-6.9); NEUTROPHILS % (AUTO) 82.4 % (42.2-75.2); PLATELET COUNT 93 10^3/uL (140-440); RDW COEFFICIENT OF VARIATION 20.5 % (11.6-14.8); RED BLOOD COUNT 2.73 10^6/ul (4.70-6.10); WHITE BLOOD COUNT 7.45 K/ul (4.2-10.2)
[2023-08-23 06:28] LABS: ALANINE AMINOTRANSFERASE 28.8 U/L (0-50); ALBUMIN 2.23 g/dL (3.5-5.0); ALKALINE PHOSPHATASE 83.2 U/L (56-119); BILIRUBIN,TOTAL 0.33 mg/dL (0.2-1.3); CALCIUM 8.17 mg/dL (8.4-10.2); CARBON DIOXIDE 18.1 mmol/L (22-30.0); CHLORIDE 108.5 mmol/L (98-107); CREATININE 3.32 mg/dL (0.60-1.10); POTASSIUM 3.44 mmol/L (3.5-5.1); SODIUM 136.4 mmol/L (134.5-145); TOTAL PROTEIN 4.59 g/dL (6.3-8.2)
[2023-08-23 06:31] LABS: BLOOD UREA NITROGEN 73.6 mg/dL (9-20)
--- NOTE | 2023-08-23 09:03 | ECHO2D ---
Date of Exam: 08/22/2023 Ordering Physician: HOSPITALIST-[facility] [place]/ DR. JOVANA PARDO Room #: 121 Reason for Echo: ATRIAL FIB, DM2, DILATED CARDIOMYOPATHY M-Mode Normal Adult Results LV Dimensions Normal Adult Results AoV Opening excursions >1.6 >1.6 LVEDD-base- 3.5-5.8 5.6 Ao root dimensions 2.0-3.7 3.9 LVESD-base- 3.1-4.6 L. Atrium dimensions 1.9-3.8 6.7 Post. Wall thickness 0.8-1.1 1.6 IV septum (thickness) 0.7-1.2 1.7 Post. Wall excursion 0.72-1.3 NORMAL Septal motion 0.9 Systolic motion R. Ventricular cavity 1.5-2.0 NORMAL LVEF 60% 60% Paradoxical septal wall motion NORMAL 2-D : DILATED BOTH ATRIUM--BORDERLINE LEFT VENTRICLE CAVITY, CALCIFIC MITRAL VALVE ANNULUS, NO THROMBUS, LEFT VENTRICLE CONTRACTILITY--NORMAL M-MODE: MV: CALCIFIC MITRAL VALVE ANNULUS AV: CALCIFIC AORTIC VALVES--NO STENOSIS TV: NORMAL PV: NORMAL CHAMBER SIZE: ENLARGED LEFT AND RIGHT ATRIUM, BORDERLINE LEFT VENTRICLE SIZE WALL MOTION: NORMAL PERICARDIUM: NORMAL INTERPRETATION: 1. MODERATE LEFT VENTRICLE HYPERTROPHY 2. BORDERLINE LEFT VENTRICLE ENALARGEMENT 3. CALCIFIC MITRAL VALVE ANNULUS 4. BORDERLINE DILATED, HYPERTROPHIC CARDIOMYOPATHY WITH EJECTION FRACTION 60% MTDD
--- NOTE | 2023-08-23 10:30 | RS.OTINEVL ---
Subjective Patient information Date of Evaluation: 08/23/23 Date of Arrival on Unit: 08/19/23 Admitted From:: Home Diagnosis: Acute renal failure PRECAUTIONS: GI bleed, Toes are about to fall off, sores on legs. Usual Living Arrangement: With Spouse Living Arrangement Comments: none Medical History: Diabetes Medical History Comments:: Afib with BBB, Acute GI bleed Surgical History: Knee Replacement Medications: Refer to chart Subjective Information/ Patient Comments:: "I don't want to go that far away." Level of function Prior to this admission, the patient could do the following:: Independent Selfcare, Independent ADL's and Participated in Social Activities Outside home Abilities prior to this admission: Pt is flexed when walking. Pt has a wide gait. Current Level of Function: Partially Dependent Comments: Pt has weakness. Current Equipment Used at Home: Straight cane, glucometer and supplies Pain Assessment Pain Pain Aggravating Factors: ADL's, Standing and Walking Pain Alleviating Factors: Lying Supine Interventions Objective Patient Orientation: Person, Place and Situation Current Interventions: Telemetry Observation: Pt has limited BUE AROM in shoulders. Pt is flexed at the hips when walking. Pt does not move his head much when walking. Interventions ROM Right Upper Extremity AROM: Moderate limitation Left Upper Extremity AROM: Moderate limitation Strength Right Upper Extremity: Mild Weakness Left Upper Extremity: Mild Weakness Sensation Right Upper Extremity: Intact/Normal Left Upper Extremity: Intact/Normal Balance Sitting Balance Static Sitting Balance: Good Dynamic Sitting Balance: Good Standing Balance Static Standing Balance: Fair Dynamic Standing Balance: Fair ADL Skills Self Feeding Self Feeding: Independent Grooming Grooming: Min Assist Bathing Bathing UE: Mod Assist Bathing LE: Mod Assist Bathing Set-up: Shower Dressing Dressing UE: Mod Assist Dressing LE: Max Assist Toilet Management Toilet Hygiene: Max Assist Toilet Clothing Management: Mod Assist Functional Mobility Bed Mobility Rolling R/L: CGA Supine to Sit: CGA Transfers Sit to Stand: Min Assist Stand to Sit: Min Assist Stand Pivot Transfers: Min Assist Ambulation Weight Bearing Status: FWB Assistive Device Used: Rolling Walker Assistance needed with Ambulation: Min Assist Safety Awareness Safety Awareness: Good KATRINA INDEX SCORE: . Additional Treatment Performed Time with patient Length of Evaluation: 20 Total treatment time: 20 Activities Do you enjoy playing games?: Yes Would you be interested in leaving your room for activities?: Yes Would you enjoy group activities?: Yes Do you have difficulty with your vision?: Yes Patient Interests:: Watching Television Patient Education Patient Education: Education of diagnosis and Education of Plan of Care Teaching Recipient: Patient Teaching Methods: Discussion Assessment Problem List:: Weakness Rehab Potential: Fair Evaluation Complexity: HISTORY: Medium, EXAM OF BODY SYSTEMS: Medium and CLINICAL DECISION MAKING: Medium Patient's Goal(s): Pt would like to go to a closer hospital. Short Term Goals Goals GOAL 1: Pt to increase BUE strength to 3/5. Goal to be met by: 08/27/23 GOAL 2: Pt to be CGA with toilet transfers. Goal to be met by: 08/27/23 GOAL 3: Pt to be CGA with UB dressing. Goal to be met by: 08/27/23 GOAL 4: Pt to increase grooming to CGA at sink. Goal to be met by: 08/27/23 Asphalt Paving Supervisor Goals GOAL 1: Pt to be independent with toilet transfers. Goal to be met by: 08/29/23 GOAL 2: Pt to be I with ADLs. Goal to be met by: 08/29/23 Plan Plan of Care: Therapeutic EX, Therapeutic Activity and Self-Care/Home Management Frequency of Treatment: 1-2 X day, as tolerated Duration of Treatment: 1 Week Anticipated Discharge Destination: Home Treatment Diagnosis (ICD 10 Codes): Weakness R53.1, Z74.1 Need for assistance with personal care. Has the Physician been added for Co-signature?: Yes
--- NOTE | 2023-08-23 14:27 | PCM.PROG ---
Date/Time Seen Date Seen by Provider: 08/23/23 Time Seen by Provider: 08:30 Provider Provider: DEMETRI RYAN PA-C, [facility] Chief Complaint Chief Complaint: ACUTE CHRONIC RENAL FAILURE Subjective Subjective: Patient has no complaints today. Has not had any BMs in last 24 hrs. Still trying to transfer patient for higher level of care. 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 Chronic discoloration of the skin surrounding the wound. No acute erythema or warmth noted. Right medial leg - Chronic wound, dry bed, no discharge noted. Vital Signs Vital Signs: Vital Signs: Last 24 Hours 08/22/23 18:00 08/22/23 19:00 08/22/23 19:40 Temperature 97.6 F Temperature Source Oral Pulse Rate 96 Respiratory Rate 18 Blood Pressure 152/73 H Blood Pressure Mean 99 Blood Pressure Location Left Arm Blood Pressure Position Sitting O2 Sat by Pulse Oximetry 98 Oxygen Delivery Method Room Air Room Air Weight Telemetry Type Remote Telemetry Telemetry Monitoring Continues Irregular Telemetry Rate (Approximate) Telemetry Heart Rate 91 Telemetry SPO2 97 EKG QRS Interval 0.12 H Telemetry Strip Reading a fib with bbb and pcv 08/22/23 21:14 08/23/23 01:00 08/23/23 02:00 Temperature 98.1 F 98.4 F Temperature Source Oral Oral Pulse Rate 86 89 Respiratory Rate 18 18 Blood Pressure 131/84 159/83 H Blood Pressure Mean 99 108 Blood Pressure Location Right Arm Right Arm Blood Pressure Position Supine Supine O2 Sat by Pulse Oximetry 97 99 Oxygen Delivery Method Room Air Room Air Weight Telemetry Type Remote Telemetry Telemetry Monitoring Continues Irregular Telemetry Rate (Approximate) 80-90 BPM Telemetry Heart Rate Telemetry SPO2 97 EKG QRS Interval 0.12 H Telemetry Strip Reading A-FIB WITH BBB 08/23/23 05:19 08/23/23 07:00 08/23/23 07:00 Temperature 98.1 F Temperature Source Oral Pulse Rate 105 H Respiratory Rate 16 Blood Pressure 162/81 H Blood Pressure Mean 108 Blood Pressure Location Right Arm Blood Pressure Position Supine O2 Sat by Pulse Oximetry 94 L Oxygen Delivery Method Room Air Weight 226 lb 5 oz Telemetry Type Remote Telemetry Telemetry Monitoring Continues Irregular Telemetry Rate (Approximate) 80-90 BPM Telemetry Heart Rate Telemetry SPO2 EKG QRS Interval 0.09 Telemetry Strip Reading AFIB 08/23/23 08:00 08/23/23 10:00 08/23/23 13:00 Temperature 97.4 F L Temperature Source Temporal Artery Scan Pulse Rate 80 Respiratory Rate 16 Blood Pressure 145/71 H Blood Pressure Mean 95 Blood Pressure Location Right Arm Blood Pressure Position O2 Sat by Pulse Oximetry 95 Oxygen Delivery Method Room Air Room Air Weight Telemetry Type Remote Telemetry Telemetry Monitoring Continues Irregular Telemetry Rate (Approximate) 70-80 BPM Telemetry Heart Rate Telemetry SPO2 98 EKG QRS Interval 0.14 H Telemetry Strip Reading afib with BBB and PVC 08/23/23 14:00 Temperature 97.7 F Temperature Source Temporal Artery Scan Pulse Rate 72 Respiratory Rate 20 Blood Pressure 146/83 H Blood Pressure Mean 104 Blood Pressure Location Right Arm Blood Pressure Position O2 Sat by Pulse Oximetry 98 Oxygen Delivery Method Room Air Weight Telemetry Type Telemetry Monitoring Irregular Telemetry Rate (Approximate) Telemetry Heart Rate Telemetry SPO2 EKG QRS Interval Telemetry Strip Reading Lab Results Lab Results: Lab Results: Last 24 Hours 08/23/23 06:09 WBC 7.45 RBC 2.73 L Hgb 7.9 L Hct 25.5 L MCV 93.4 MCH 28.9 MCHC 31.0 L RDW Coeff of Ebenezer 20.5 H Plt Count 93 L Immature Gran % (Auto) 0.8 Neut % (Auto) 82.4 H Lymph % (Auto) 7.4 L Nobles % (Auto) 6.7 Eos % (Auto) 2.6 Baso % (Auto) 0.1 Neut # (Auto) 6.1 Lymph # (Auto) 0.6 Nobles # (Auto) 0.5 Eos # (Auto) 0.2 Baso # (Auto) 0.0 Immature Gran # (Auto) 0.1 Sodium 136.4 Potassium 3.44 L Chloride 108.5 H Carbon Dioxide 18.1 L Anion Gap 13.24 BUN 73.6 H* Creatinine 3.32 H Estimated GFR (MDRD) 18.00 BUN/Creatinine Ratio 22.16 Glucose 234.0 H Calcium 8.17 L Total Bilirubin 0.33 AST 30.0 ALT 28.8 Alkaline Phosphatase 83.2 Total Protein 4.59 L Albumin 2.23 L Globulin 2.36 Albumin/Globulin Ratio 0.94 Additional Comments Additional Comments: I have independently reviewed and interpreted the labs/EKGs/imaging ordered during this hospital stay. I have reviewed outside records that are available in our EMR that pertain to medical stay including imaging/notes/labs from previous visits. Active Medications Active Medications: Medications Generic Name Dose Route Start Last Admin Trade Name Freq PRN Reason Stop Dose Admin Acetaminophen 650 mg 08/19/23 15:36 Acetaminophen 325 Mg Tablet PO Q4H PRN Mild Pain Allopurinol 200 mg 08/20/23 09:00 08/23/23 08:57 Allopurinol 100 Mg Tablet PO Not Given DAILY [facility] Atorvastatin Calcium 20 mg 08/20/23 09:00 08/23/23 08:56 Atorvastatin Calcium 20 Mg Tablet PO Not Given DAILY LORRI Calcium Carbonate/Glycine 500 mg 08/19/23 20:51 08/21/23 09:47 Calcium Carbonate 500 Mg Tab.Chew PO 500 mg Q6H PRN Administration Heartburn Clonidine 0.2 mg 08/19/23 21:00 08/23/23 08:56 Clonidine Hcl 0.1 Mg Tablet PO Not Given BID LORRI Dextrose 50 ml 08/21/23 20:14 Dextrose 50 % In Water 50 Ml Disp.Syrin IVP ONCE PRN hypoglycemia Diltiazem HCl 60 mg 08/19/23 21:00 08/21/23 20:23 Diltiazem Hcl 60 Mg Tablet PO 60 mg Q12HR LORRI Administration Ferrous Sulfate 324 mg 08/20/23 21:00 08/23/23 08:56 Ferrous Sulfate 324 Mg Tablet.Dr PO Not Given BID LORRI Fish Oil 3,000 mg 08/20/23 09:00 08/23/23 08:57 Watson-3/Dha/Epa/Fish Oil 1,000 Mg Capsule PO Not Given DAILY [facility] Guaifenesin/Dextromethorphan 5 ml 08/22/23 17:10 08/22/23 17:22 Guaifenesin/Dextromethorphan 200/20 Mg/10 Ml Cup PO 5 ml Q6H PRN Administration Cough CEFTRIAXONE/D5W 1 GM PREMIX 1 gm in 50 mls @ 100 mls/hr 08/21/23 14:00 08/23/23 09:02 Rocephin 1 Gm/50 Ml D5w IV 08/24/23 13:59 100 mls/hr DAILY [facility] Administration Doxycycline Hyclate 100 mg/ 100 mls @ 50 mls/hr 08/21/23 21:00 08/23/23 10:03 Sodium Chloride IV 08/24/23 20:59 50 mls/hr Q12HR LORRI Administration Dextrose/Sodium Chloride 1,000 mls @ 75 mls/hr 08/22/23 22:00 08/23/23 11:41 Dextrose 5%-1/2ns Iv Solution IV Not Given .[id number] [facility] Insulin Glargine 10 unit 08/20/23 09:00 08/23/23 08:56 Insulin Glargine,Hum.Rec.Anlog 100 Units/Ml SUBCUT Not Given DAILY [facility] Insulin Human Regular 0 unit 08/19/23 18:23 08/23/23 06:40 Insulin Regular, Human 100 Unit/Ml (10ml) Vial SUBCUT 5 unit PRN PRN Administration Hyperglycemia Protocol Latanoprost 1 drop 08/21/23 21:00 08/22/23 20:39 Latanoprost 2.5 Ml Opth Emma EACHEYE 1 drop BEDTIME LORRI Administration Metoprolol Tartrate 100 mg 08/20/23 09:00 08/21/23 10:00 Metoprolol Tartrate 50 Mg Tablet PO Not Given BID [facility] Ondansetron HCl 4 mg 08/22/23 18:15 Ondansetron Hcl/Pf 4 Mg/2 Ml Sdv IVP Q6H PRN Nausea / Vomiting Pantoprazole Sodium 40 mg 08/21/23 09:00 08/23/23 09:02 Pantoprazole Sodium 40 Mg Vial IVP 40 mg BID LORRI Administration Sodium Bicarbonate 650 mg 08/19/23 21:00 08/23/23 08:57 Sodium Bicarbonate 650 Mg Tablet PO Not Given TID LORRI Terazosin HCl 5 mg 08/19/23 21:00 08/23/23 08:56 Terazosin Hcl 5 Mg Capsule PO Not Given BID LORRI Plan Plan: 1. Acute upper GI bleed - Occult stool positive. Pt has epigastric discomfort. Has been taking pepto bismol often. On xarelto. Would benefit from transfer for scopes. Hold xarelto, last dose 08/20. Cont protonix 40 bid IVP. 2. Acute on Chronic Renal Failure - Improved. baseline creatinine appears to be around 3.3 based on previous. Received 2L NS in ER then started on sodium bicarb in LR@100mL/hr. Stopped bicarb drip 08/21 AM. 3. Uremia - Improved. BUN continues to be elevated, despite improvement of Cr an d bicarb. Occult stool positive. Possibly elevated in setting of GI bleed. 4. Sepsis r/o - WBC count improved, blood cultures negative so far. Could be due to chronic wounds. 5. Metabolic acidosis secondary to renal failure - Improving, monitor bicarb 6. Acute on chronic anemia - S/p 1 u PRBCs on 08/21. Hemoglobin 7.9 today, checked iron studies and showed low, increased home iron to BID. Occult stool positive. Rechecking hgb now. 7. A fib - rate controlled now, hold metoprolol and cardizem due to bradycardia 8. Hypertension - uncontrolled due to missed meds, restarted home medications 9. Diabetes Mellitus, Type 2 - chronic, accuchecks QID, ADA diet. Last a1c 6.6 back in May 22. Holding insulin due to being NPO awaiting transfer. 10. Diabetic foot/leg wounds with dry gangrene, zeynep - Pt follows with vascular/wound care in [facility]. Wound care sent over recent wound culture showing MRSA and serratia sensitive to doxy and rocephin respectively. Contact precautions. DVT Prophylaxis: Holding Attempting to transfer for acute GI bleed - needs further work up. [facility] - high call volume, only given option to leave message, awaiting call back since Monday. Left 3rd message today. [facility] - still on wait list, they are unsure when bed may become available. [facility] - on waitlist agreed to reach out to [facility] after speaking with friends/family. They accept patient but no bed available. Could be today or tomorrow. Dr. Shipman, hospitalist, is accepting physician. Will remain npo until this evening, if no bed available by then will allow patient to eat and make NPO after midnight again. Review Statement Review Statement: I have personally discussed and reviewed the patient's visit/currently labs/imaging/decision making with Dr. Rust, my supervising attending. Greater that 50 minutes spent with patient, 50% of the time spent with this dionna ent was devoted to counseling and coordination of care.
--- NOTE | 2023-08-23 16:21 | RS.PTINEVL ---
Subjective Patient information Date of Evaluation: 08/23/23 Date of Arrival on Unit: 08/19/23 Admitted From:: Home Diagnosis: acute on chronic renal failure, sepsis, metabolic acidosis Usual Living Arrangement: With Spouse Living Arrangement Comments: none Home Environment: House and Stairs (few) Medical History: Diabetes Medical History Comments:: Afib with BBB, Acute GI bleed, GERD, diabetic ulcer R foot, CKD, dilated cardiomyopathy, MARIXA Surgical History: Knee Replacement Surgical History Comments:: s/p partial thyroidectomy Medications: see chart Subjective Information/ Patient Comments:: pt states that he wants to have something to drink. Advised pt he is still NPO awaiting possible transfer to another facility. pt states that he is more comfortable in the chair than in the bed. Level of function Prior to this admission, the patient could do the following:: Independent Selfcare, Independent ADL's and Participated in Social Activities Outside home Current Level of Function: Partially Dependent Current Equipment Used at Home: Straight cane, glucometer and supplies Pain Assessement Location Right Foot: Description: Burning and Sharp Pain Behavior: Facial Grimacing Interventions Objective Patient Orientation: Person, Place, Time and Situation Current Interventions: IV's and Telemetry Observation: dressings in place BLE, B feet, coccyx. Dressing on LLE saturated with bloody exudate, notified nursing (Charlotte RN) Range of Motion ROM Right Upper Extremity AROM: Moderate limitation (limited shld flex ) Left Upper Extremity AROM: Moderate limitation (limited shld flex ) Right Lower Extremity AROM: Slight limitation (decreased knee ext ) Left Lower Extremity AROM: Slight limitation (decreased knee ext ) Muscle Strength Muscle Strength Right Upper Extremity: Mild Weakness (shld flex 3-/5, elbow flex/ext 4/5 ) Left Upper Extremity: Mild Weakness (shld flex 3-/5, elbow flex/ext 4/5 ) Right Lower Extremity: Mild Weakness (hip flex 4-/5, knee flex/ext 4/5, ankle DF/PF (not tested due to wounds)) Left Lower Extremity: Mild Weakness (hip flex 4-/5, knee flex/ext 4/5, ankle DF/PF (not tested due to wounds)) Sensation Sensation Right Upper Extremity: Intact/Normal Left Upper Extremity: Intact/Normal Right Lower Extremity: Impaired Left Lower Extremity: Impaired Comments: n/t B LE Palpation Palpation Findings: Tenderness (R foot) Balance Sitting Balance and Reactions Static Sitting Balance: Fair (fair+) Dynamic Sitting Balance: Fair Standing Balance and Reactions Static Standing Balance: Poor Dynamic Standing Balance: Poor Functional Mobility Bed Mobility Comments:: pt sitting up in bedside chair Transfers Sit to Stand: Min Assist and 2 person assist Stand to Sit: Min Assist and 1 person assist Comments:: min x 1 from bedside commode Safety Awareness Safety Awareness: Fair KATRINA INDEX SCORE: n/a Ambulation Ambulation Assistive Device Used: Rolling Walker Orthotic/Prosthetic Device: No Distance: 25ft Assistance needed with Ambulation: Min Assist and 1 person assist Gait Deviations: Wide Based gait, Step-to gait, Forward posture and Short stride Ambulation Comments: pt requires cues for walker placement and step length as well as posture. Factors Affecting Ambulation: Decreased Balance, Pain, Weakness, Decreased Safety and Limited Endurance Treatment time Units charged Gait trainin Time with patient Length of Evaluation: 21 Total treatment time: 32 Patient Education Education Patient Education: Activity Modification and Education of Plan of Care Teaching Recipient: Patient Teaching Methods: Discussion Comments: discussion regarding proper use of rwx and POC Assessment Assessment Problem List:: Decreased level of function, Requires training/education, Decreased safety/Risk of falls, Weakness and Pain limits previous level of function Rehab Potential: Fair Further Therapy Indicated?: Yes Candidate for Swing Bed for Therapy Services?: Feel pt may not be a candidate for swing bed due to medical issues at this time. Evaluation Complexity: HISTORY: Medium, EXAM OF BODY SYSTEMS: Medium, CLINICAL PRESENTATION: Medium and CLINICAL DECISION MAKING: Medium Patient's Goal(s): I want to go home. Short Term Goals GOAL #1: pt demonstrate rolling and scooting in bed independently. Goal to be met by: 08/25/23 GOAL #2: Transfer sup to/from sit CGA Goal to be met by: 08/25/23 GOAL #3: Transfer sit to/from stand CGA Goal to be met by: 08/25/23 GOAL #4: pt amb with rwx 50ft with CGA no LOB Goal to be met by: 08/25/23 GOAL #5: improve BLE strength 4 to 4+/5 Goal to be met by: 08/25/23 [employer] Floor [employer] Goals GOAL #1: Transfer sup to/from sit to/from stand SBA Goal to be met by: 08/28/23 GOAL #2: pt amb functional household distances with rwx and SBA Goal to be met by: 08/28/23 GOAL #3: Improve dyn stand balance fair- Goal to be met by: 08/28/23 Plan Plan of Care: Therapeutic EX and Therapeutic Activity Other:: gait training Frequency of Treatment: 1-2 X day, as tolerated Duration of Treatment: 5 days Anticipated Discharge Destination: undetermined Treatment Diagnosis (ICD 10 Codes): weakness M62.81 impaired balance R 26.81 gait difficulty R 26.2 Has the Physician been added for Co-signature?: Yes
--- NOTE | 2023-08-23 17:26 | DCSUM ---
Admission Date Admission Date: 08/19/23 Discharge Date Discharge Date: 08/23/23 Admission Diagnosis Admission Diagnosis: 1. Acute on Chronic Renal Failure 2. Sepsis r/o 3. Metabolic acidosis secondary to renal failure Discharge Diagnosis Discharge Diagnosis: 1. Acute upper GI bleed - Occult stool positive. Pt has epigastric discomfort. Has been taking pepto bismol often. On xarelto. Would benefit from transfer for scopes. Hold xarelto, last dose 08/20. Cont protonix 40 bid IVP. 2. Acute on Chronic Renal Failure - Improved. baseline creatinine appears to be around 3.3 based on previous. Received 2L NS in ER then started on sodium bicarb in LR@100mL/hr. Stopped bicarb drip 08/21 AM. 3. Uremia - Improved. BUN continues to be elevated, despite improvement of Cr and bicarb. Occult stool positive. Possibly elevated in setting of GI bleed. 4. Sepsis r/o - WBC count improved, blood cultures negative so far. Could be due to chronic wounds. 5. Metabolic acidosis secondary to renal failure - Improving, monitor bicarb 6. Acute on chronic anemia - S/p 1 u PRBCs on 08/21. Hemoglobin 7.9 today, checked iron studies and showed low, increased home iron to BID. Occult stool positive. Rechecking hgb now. 7. A fib - rate controlled now, hold metoprolol and cardizem due to bradycardia 8. Hypertension - uncontrolled due to missed meds, restarted home medications 9. Diabetes Mellitus, Type 2 - chronic, accuchecks QID, ADA diet. Last a1c 6.6 back in May 22. Holding insulin due to being NPO awaiting transfer. 10. Diabetic foot/leg wounds with dry gangrene, zeynep - Pt follows with vascular/wound care in [facility]. Wound care sent over recent wound culture showing MRSA and serratia sensitive to doxy and rocephin respectively. Contact precautions. Hospital Provider Hospital Provider: DEMETRI RYAN PA-C, [facility] Primary Care Physician Primary Care Physician: JOVANA RUST MD Summary of History and Physical Summary of History and Physical: 72 yo male presented to the ER yesterday with complaints of weakness. Reports he has not been eating or drinking well over the last 5 days or so. Has been taking his medications as prescribed except did not take his meds prior to coming to the ER. Denies any sick contacts. Denies any known fever, chills, body aches, N/V/D. Has chronic wounds to bilateral legs/feet and follows with wound care twice a week. Dressings were removed and patient has 1 area to the left foot laterally that was cultured due to drainage present. In the ER patient was found to have a creatinine of 3.8 (baseline 3.2) and BUN of 98 (baseline 40-50s). Bicarb was 13. He was given 2L of fluid and started on a bicarb drip. Hospital Course Subjective: Patient was initially hydrated and started on bicarb drip. His Cr and bicarb improved. However BUN remained elevated in the 80s. He had complained of nausea and GI upset. states he's been drinking pepto bismol often lately. His hemoglobin trended down and he had a dark stool that was occult positive. Last dose of Xarelto given 08/20, held since then. 08/21 bicarb drip was stopped. He was started on protonix 40 bid. His hemoglobin dropped from 10.2 to 7.5. He was transfused 1U PRBCs evening of 08/21. His hgb improved to 8.5 but then trended back down to 7.9 today. Started transfer process Monday morning, finally able to secure a bed today despite contacting multiple facilities over last several days. Patient accepted at [facility] in [facility] by hospitalist Dr. Shipman. Pt would benefit from further work up for gi bleed. Patient does have dry gangrene involving 4 toes. He sees vascular and wound care in [facility]. He has chronic wounds to lower ext. On 08/21 his wound care clinic called with his most recent wound culture from last week from left lower ext showing serratia and MRSA sensitive to rocephin and doxy respectively. These were both started on 08/21. Also of note, patient was initially tachycardic upon admission. He takes metoprolol and cardizem for rate control. He was borderline bradycardic on evening of 08/20 so his metoprolol was held. Then on morning of 08/22 his HR was consistently in the 40s, sometimes hitting the 20s while sleeping. He awoke easily and had normal mentation, complained of no symptoms. Cardizem held also at that time. Since holding both, his HR has been consistently in 70-80s. Appearance: No Apparent Distress, Alert and Other (+chronically ill appearing. Pale. ) HEENT: MMM and Supple CVS: No Murmur Abdomen: Soft, Non-Tender and No Distention Respiratory: No Dyspnea Additional Findings: Right foot - 1st and 4th digit with dry gangrene noted, chronic, unchanged recently per patient Left foot - 2nd and 3rd digit with dry gangrene noted, chronic, unchanged recently per patient Left lateral leg - chronic wound with blood tinged discharge noted, wound appears to tunnel distally. Chronic discoloration of the skin surrounding the wound. No acute erythema or warmth noted. Right medial leg - Chronic wound, dry bed, no discharge noted. Vital Signs: Most Recent Vital Signs Temperature 97.7 F 08/23/23 14:00 Temperature Source Temporal Artery Scan 08/23/23 14:00 Temperature Source Oral 08/19/23 09:36 Pulse Rate 72 08/23/23 14:00 Respiratory Rate 20 08/23/23 14:00 Blood Pressure 146/83 H 08/23/23 14:00 Blood Pressure Mean 104 08/23/23 14:00 Blood Pressure Left Arm 177/96 08/19/23 16:04 Blood Pressure Location Right Arm 08/23/23 14:00 Blood Pressure Position Supine 08/23/23 05:19 O2 Sat by Pulse Oximetry 98 08/23/23 14:00 Oxygen Delivery Method Room Air 08/23/23 14:00 Height 6 ft 08/21/23 09:42 Weight 226 lb 5 oz 08/23/23 07:00 Telemetry Type Remote Telemetry 08/23/23 13:00 Telemetry Monitoring Continues 08/23/23 13:00 Irregular Telemetry Rate (Approximate) 70-80 BPM 08/23/23 13:00 Telemetry Heart Rate 91 08/22/23 19:00 Telemetry SPO2 98 08/23/23 13:00 EKG QRS Interval 0.14 H 08/23/23 13:00 Telemetry Strip Reading afib with BBB and PVC 08/23/23 13:00 Imaging: EXAM: SINGLE VIEW CHEST. HISTORY: Weakness COMPARISON: 02/08/2017 FINDINGS: The car mediastinal silhouette appears enlarged. Mild calcified plaques overlie the aorta. Pulmonary vascularity is within normal limits. No focal airspace opacity or pleural effusion is seen. Punctate left lower lung zone calcified granuloma is suggested. The bones are diffusely demineralized. IMPRESSION: No acute cardiopulmonary findings. Mild cardiomegaly versus magnified heart size by technique. Date of Exam: 08/22/2023Ordering Physician: HOSPITALIST-MAHI [place]/ DR. JOVANA RUST Room #: 121 Reason for Echo: ATRIAL FIB, DM2, DILATED CARDIOMYOPATHY M-Mode Normal Adult Results LV Dimensions Normal Adult Results AoV Opening excursions >1.6 >1.6 LVEDD-base- 3.5-5.8 5.6 Ao root dimensions 2.0-3.7 3.9 LVESD-base- 3.1-4.6 L. Atrium dimensions 1.9-3.8 6.7 Post. Wall thickness 0.8-1.1 1.6 IV septum (thickness) 0.7-1.2 1.7 Post. Wall excursion 0.72-1.3 NORMAL Septal motion 0.9 Systolic motion R. Ventricular cavity 1.5-2.0 NORMAL LVEF 60% 60% Paradoxical septal wall motion NORMAL 2-D : DILATED BOTH ATRIUM--BORDERLINE LEFT VENTRICLE CAVITY, CALCIFIC MITRAL VALVE ANNULUS, NO THROMBUS, LEFT VENTRICLE CONTRACTILITY--NORMAL M-MODE: MV: CALCIFIC MITRAL VALVE ANNULUS AV: CALCIFIC AORTIC VALVES--NO STENOSIS TV: NORMAL PV: NORMAL CHAMBER SIZE: ENLARGED LEFT AND RIGHT ATRIUM, BORDERLINE LEFT VENTRICLE SIZE WALL MOTION: NORMAL PERICARDIUM: NORMAL INTERPRETATION: 1. MODERATE LEFT VENTRICLE HYPERTROPHY 2. BORDERLINE LEFT VENTRICLE ENALARGEMENT 3. CALCIFIC MITRAL VALVE ANNULUS 4. BORDERLINE DILATED, HYPERTROPHIC CARDIOMYOPATHY WITH EJECTION FRACTION 60% Dictated By JOVANA RUST MDDictating Date/Time: 08/23/23 0800Transcriptionist: VERITO Signed By JOVANA RUST MDSigned Date/Time: 08/23/23 0905 Lab Results Last 24 Hours: 08/23/23 08/23/23 14:36 06:09 WBC 7.45 RBC 2.73 L Hgb 8.7 L 7.9 L Hct 25.5 L MCV 93.4 MCH 28.9 MCHC 31.0 L RDW Coeff of Ebenezer 20.5 H Plt Count 93 L Immature Gran % (Auto) 0.8 Neut % (Auto) 82.4 H Lymph % (Auto) 7.4 L [place]one % (Auto) 6.7 Eos % (Auto) 2.6 Baso % (Auto) 0.1 Neut # (Auto) 6.1 Lymph # (Auto) 0.6 [place]oshone # (Auto) 0.5 Eos # (Auto) 0.2 Baso # (Auto) 0.0 Immature Gran # (Auto) 0.1 Sodium 136.4 Potassium 3.44 L Chloride 108.5 H Carbon Dioxide 18.1 L Anion Gap 13.24 BUN 73.6 H* Creatinine 3.32 H Estimated GFR (MDRD) 18.00 BUN/Creatinine Ratio 22.16 Glucose 234.0 H Calcium 8.17 L Total Bilirubin 0.33 AST 30.0 ALT 28.8 Alkaline Phosphatase 83.2 Total Protein 4.59 L Albumin 2.23 L Globulin 2.36 Albumin/Globulin Ratio 0.94 Discharge Instructions Discharge Planning: Discharge Planning > [address] Jimena Rust. Discharge Medications: Medications at Discharge (Home Meds & RX) latanoprost 0.005 % eye drops 1 drp BOTHEYES DAILY 10/30/13 allopurinol 100 mg tablet 200 mg PO QDAY 11/18/22 ascorbic acid (vitamin C) 1,000 mg tablet 1 g PO DAILY 11/18/22 calcitriol 0.5 mcg capsule 0.5 mcg PO QDAY 11/18/22 ergocalciferol (vitamin D2) 1,250 mcg (50,000 unit) capsule (Vitamin D2) 1,250 mcg PO QMONTH 11/18/22 ferrous fumarate 325 mg (106 mg iron) tablet 325 mg PO QDAY 11/18/22 glucosamine-chondroitin 250 mg-200 mg tablet (Osteo Bi-Flex) 2 tab PO QPC 11/18/22 liraglutide 0.6 mg/0.1 mL (18 mg/3 mL) subcutaneous pen injector (Victoza 3-Antonio) 1.8 mg subcut QDAY 11/18/22 omega 8-alo-vup-fish oil 60 mg-90 mg-500 mg capsule (Fish Oil) 3 cap PO QDAY 11/18/22 sodium bicarbonate 650 mg tablet 650 mg PO TID 11/18/22 rivaroxaban 15 mg tablet (Xarelto) 15 mg PO QDAY #90 tabs 11/29/22 diltiazem HCl 60 mg tablet 60 mg PO Q12HR #180 tabs 02/21/23 insulin degludec 100 unit/mL (3 mL) subcutaneous pen (Tresiba FlexTouch U-100 insulin) 10 unit subcut QDAY 03/15/23 insulin lispro 100 unit/mL subcutaneous pen 4 unit subcut BID 03/15/23 clonidine HCl 0.2 mg tablet See Rx Instructions .Route .COMPLEX #180 tabs 1 magnesium 250 mg tablet 500 mg PO QDAY 06/28/23 zinc gluconate 100 mg tablet 100 mg PO DAILY 06/28/23 terazosin 5 mg capsule See Rx Instructions .Route .COMPLEX #180 caps 08/14/23 atorvastatin 40 mg tablet (Lipitor) 20 mg PO DAILY 08/19/23 cyanocobalamin (B12)-cobamamide 5,000 mcg-100 mcg sublingual lozenge (B12) 1 rosa isela sublingual DAILY 08/19/23 furosemide 20 mg tablet (Lasix) 20 mg PO DAILY 08/19/23 metoprolol tartrate 100 mg tablet 100 mg PO BID 08/19/23 Discharge Plan Discharge Discharge Orders: Discharge Patient (ONCE); Ordered 08/23/23 Ordered By: DEMETRI RYAN Activity Restrictions/Additional Instructions: * Transfer to [facility]. Accepting hospitalist Dr. Shipman * NPO Patient Disposition: TSF SHORT-TRM HOSP Did you review [place] NEUROLOGY DIRECTOR for ALL controlled substances?: Not Applicable Discussed opioids are addictive and Narcan is available by prescription or from pharmacy.: No Condition: Stable
[2023-08-23 18:26] VITALS: BP 153/88; PULSE 89; RESP 16; TEMP 97.3
== END 2023-08-23 18:21 | disposition short-term general hospital (02) | DRG 683 ==
LOC: MEDSURG B 09:30 → ED 09:30 → INTOOBSV 15:53 → OBSVTOIN 15:53 → MEDSURG B 17:20
PROVIDERS: ADMIT Hospitalist; ATTEND Physician Assistant
DX: L97.509 Non-pressure chronic ulcer of other part of unspecified foot with unspecified severity; I48.21 Permanent atrial fibrillation; Z79.01 Long term (current) use of anticoagulants; M87.075 Idiopathic aseptic necrosis of left foot; D64.9 Anemia, unspecified; N18.30 Chronic kidney disease, stage 3 unspecified; E87.21 Acute metabolic acidosis; E11.22 Type 2 diabetes mellitus with diabetic chronic kidney disease; E11.621 Type 2 diabetes mellitus with foot ulcer; E86.0 Dehydration; N17.9 Acute kidney failure, unspecified; E11.21 Type 2 diabetes mellitus with diabetic nephropathy